=== PATIENT | male | born 1985 | race African-American/Black ===

== ENCOUNTER 2025-04-28 18:09 | Emergency (ER) | payer OTHER, SELFPAY ==
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
[2025-04-28 18:20] VITALS: BP 143/84; PULSE 120; RESP 20; TEMP 36.4; O2SAT 100
--- NOTE | 2025-04-28 18:26 | ECG_ITS ---
Test Date: 2025-04-28 18:30:03 Measurements Intervals [place] Rate: 123 P: 29 ND: 123 QRS: -2 QRSD: 89 T: 46 QT: 294 QTc: 421 Interpretive Statements SINUS TACHYCARDIA ABNORMAL RHYTHM ECG No previous ECG available for comparison Electronically Signed On 04-29-2025 10:06:27 CDT by Ervin Shelley M.D.
--- OUTSIDE RECORDS SUMMARY | 2025-04-28 22:49 | XMS_ITS ---
Author Name Department of Vetera Affairs (MD) Organization [facility] of Veter[facility] Affairs ([place]) Address [address] [place] [address] Care Team Providers Care Data Administrator Name Role Phone PEARL RICKETTS Primary Care Provider UnavailIGNACIO Cornelius Primary Care Provider Unavailtony ferreira Selected Encounter This section includes the information on record at MD for the Encounter. Date/Time Encounter Type Encounter Description Reason Provider Source Sep 10, 2024 11:39 AM TARGETED CASE MANAGEMENT ADMIN PAT ACTIVTIES (MASNONCT) CAILIN MEDINA Encounter Template Text not used by MD Plan of Treatment: Future Appointments (+ 6 months) and Future Tests (+/- 45 days) The Plan of Treatment section includes future care activities for the patient from all MD treatmentfacilities. This section includes future appointments and future orders which are active, pending or scheduled. Future Appointments This section includes appointments that were scheduled to occur 6 months from the date of the Encounter, up to a maximum of 20 appointments. The data comes from all MD treatment facilities. Appointment Date/Time Appointment Type Appointme nt Facility Name Sep 18, 2024 08:00 AM AMBULATORY - NONE BERTRAM QUEENIEBrianna DIXON [facility] Sep 24, 2024 09:00 AM AMBULATORY - MEDICINE [facility] Sep 24, 2024 11:00 AM AMBULATORY - MEDICINE [facility] Oct 21, 2024 02:00 PM AMBULATORY - MEDICINE [facility] Oct 21, 2024 03:00 PM AMBULATORY - MEDICINE [facility] Jan 24, 2025 02:00 PM AMBULATORY - MEDICINE [facility] February 14, 2025 09:30 AM AMBULATORY - MEDICINE [facility] Active, Pending, and Scheduled Orders This section includes a listing of several types of active, pending, and scheduled orders, including clinic medications orders, diagnostic test orders, procedure orders and consult orders; where the start date of the order is 45 days before the date of the Encounter or 45 days after the date of theEncounter. The data comes from all MD treatment facilities. Test Date/Time Test Type Test Details Facility Name Sep 09, 2024 12:00 AM Laboratory - Chemi stry Order HEMOGLOBIN A1C LAVENDER TOP BLOOD [facility] Sep 09, 2024 12:00 AM Laboratory - Chemi stry Order CMP-NONFASTING (CO) GREEN TOP TUBE PLASMA [facility] Sep 09, 2024 12:00 AM Laboratory - Chemi stry Order LIPID PROFILE(HDL,TRIG,CHOL ,LDL) GREEN TOP TUBE PLASMA ROSY [facility] Sep 09, 2024 12:00 AM Laboratory - Chemi stry Order CBC PROFILE 5 ML LAVENDER TOP BLOOD [facility] Sep 24, 2024 12:00 AM Laboratory - Chemi stry Order MICRAL/CREAT PROFILE (STL) URINE YELLOW [facility] Lab Results: +/- 30 days of the encounter This section includes the Chemistry and Hematology Lab Results on record with MD for the patient. Radiology Reports and Pathology Reports are provided separately, in subsequent sections. Lab Results This section contains the Chemistry/Hematology Results that were resulted 30 days before or 30 daysafter the date of the Encounter. Date/Time Source Result Type Result - Unit Interpretation Reference Range Specimen Type Comment Sep 24, 2024 10:10 AM [facility] C-PEPTIDE SERUM Specimen Type: SERUM Comment: Test Performed by [employer], [employer] [facility], [address] [place] [address] Shaji Adler M.D., Ph.D., Director of Laboratories , NARCISO [id number] Ordering Provider: PEARL RICKETTS Report Released Date/Time: Sep 24, 2024 10:05 AM Reporting Lab: [facility] [address] [facility] [address] Performing Lab: [facility] [address] [facility] C-PEPTIDE 3.70 ng/mL 0.80-3.85 Sep 24, 2024 10:10 AM [facility] HUE Ab SERUM Specimen Type: SERUM Comment: REFERENCE RANGE: <5 IU/mL This test was performed using the GAD65 YUMIKO method, which is standardized against the International reference preparation 97/550. Test Performed by [employer] [facility], [employer] [facility], [address] [place] [address] Shaji Adler M.D., Ph.D., Director of Laboratories , [place] [id number] Ordering Provider: PEARL RICKETTS Report Released Date/Time: Sep 24, 2024 10:05 AM Reporting Lab: [facility] [address] [facility] [address] Performing Lab: [facility] [id number] [place] [address] HUE Ab <5 [IU]/mL SEE BELOW Sep 24, 2024 10:10 AM [facility] HGA1C BLOOD Specimen Type: BLOOD No comment entered. Ordering Provider: PEARL RICKETTS Report Released Date/Time: Sep 20, 2024 09:48 AM Reporting Lab: [facility] [address] [facility] [address] Performing Lab: [address] [address] HGA1C 8.7 H 4.0-6.0 Sep 24, 2024 10:10 AM [facility] B12 SERUM Specimen Type: SERUM No comment entered. Ordering Provider: PEARL RICKETTS Report Released Date/Time: Sep 24, 2024 10:05 AM Reporting Lab: [facility] [address] [facility] [address] Performing Lab: [address] [address] B12 401 pg/mL 213-816 Sep 24, 2024 10:10 AM [facility] FOLATE (STL-MA) SERUM Specimen Type: SERUM No comment entered. Ordering Provider: PEARL RICKETTS Report Released Date/Time: Sep 24, 2024 10:05 AM Reporting Lab: [facility] [address] [facility] [address] Performing Lab: [facility] [address] [facility] [address] FOLATE (STL-MA) 10.1 ng/mL 7-20 Sep 24, 2024 10:10 AM [facility] COMPREHENSIVE METABOLIC PANEL PLASMA Specimen Type: PLASMA Comment: No hemolysis noted. Ordering Provider: PEARL RICKETTS Report Released Date/Time: Sep 20, 2024 09:48 AM Reporting Lab: [facility] [address] [facility] [address] Performing Lab: [address] [address] CREATININE 0.71 mg/dL 0.7-1.3 UREA NITROGEN 13.2 mg/dL 9.0-25.0 GLUCOSE 254 mg/dL H 72-99 SODIUM 140 meq/L 136-145 POTASSIUM 4.3 meq/L 3.5-5 CHLORIDE 105 meq/L 98-107 CARBON DIOXIDE 22 meq/L 22-31 CALCIUM 9.7 mg/dL 8.4-10.4 PROTEIN 8.2 g/dL 6-8.6 ALBUMIN 4.7 g/dL 3.4-5 TOTAL BILIRUBIN 0.8 mg/dL 0.2-1.2 ALKALINE PHOSPHATASE 121 U/L 40-150 AST/SGOT 26 U/L 5-34 ALT/SGPT 18 U/L 8-40 EGFR (CKD-EPI 2020) 119.7 >60 Sep 24, 2024 10:10 AM [facility] CBC BLOOD Specimen Type: BLOOD No comment entered. Ordering Provider: PEARL RICKETTS Report Released Date/Time: Sep 20, 2024 09:48 AM Reporting Lab: [facility] [address] [place] [address] Performing Lab: [address] [address] WBC 8.4 10*3/uL 3.6-11.2 RBC 5.92 10*6/uL H 4.10-5.70 HGB 17.8 g/dL H 13.1-16.8 HCT 50.3 H 38.2-48.4 MCV 85.0 fL 80.0-100.0 MCH 30.1 pg 27.0-34.0 MCHC 35.4 g/dL 33.0-36.0 PLT 222 10*3/uL 150-400 MPV 11.8 fL H 7.5-11.2 RDW 12.0 11.8-15.1 LYMPHOCYTES, AUTO % 30 MONOCYTES, AUTO % 6 NEUTROPHILS, AUTO % 61 EOSINOPHILS, AUTO % 2 BASOPHILS, AUTO % 1 LYMPHOCYTES, ABSOLUTE 2.53 10*3/uL 0.77- 4.50 MONOCYTES, ABSOLUTE 0.53 10*3/uL 0.19-0. 80 NEUTROPHILS, ABSOLUTE 5.08 10*3/uL 2.10- 8.00 EOSINOPHILS, ABSOLUTE 0.15 10*3/uL 0.00- 0.60 BASOPHILS, ABSOLUTE 0.07 10*3/uL 0.00-0. 20 Sep 24, 2024 10:10 AM [facility] TSH (MA-PB) SERUM Specimen Type: SERUM Comment: No hemolysis noted. Ordering Provider: PEARL RICKETTS Report Released Date/Time: Sep 20, 2024 09:48 AM Reporting Lab: [facility] [address] [facility] [address] Performing Lab: [facility] [address] [facility] [address] TSH 1.665 u[IU]/mL 0.47-5 Sep 24, 2024 10:10 AM [facility] LIPID PANEL (STL) PLASMA Specimen Type: PLASM A Comment: No hemolysis noted. Ordering Provider: PEARL RICKETTS Report Released Date/Time: Sep 20, 2024 09:48 AM Reporting Lab: [facility] [address] [facility] [address] Performing Lab: [facility] [address] [facility] [address] CHOLESTEROL 209 mg/dL H 0-200 TRIGLYCERIDE 124 mg/dL 0-150 CALCULATED LDL 129 mg/dL HDL(New) 55 mg/dL >40 Sep 24, 2024 10:10 AM [facility] VITAMIN D, 25-HYDROXY SERUM Specimen Type: SE RUM No comment entered. Ordering Provider: PEARL RICKETTS Report Released Date/Time: Sep 20, 2024 09:48 AM Reporting Lab: [facility] [address] [facility] [address] Performing Lab: [facility] [address] [facility] [address] VITAMIN D, 25-HYDROXY 23.6 ng/mL L 30-96 Sep 24, 2024 09:04 AM [facility] GLUCOSE,BLOOD-poct (STL) BLOOD Specimen Type: BLOOD Comment: Test Performed by: [id number] Meter #: [id number] Ordering Provider: ALEXANDREA SCHUSTER Report Released Date/Time: Sep 24, 2024 02:58 PM Reporting Lab: [facility] [address] [facility] [address] Performing Lab: [facility] [address] [facility] [address] GLUCOSE,BLOOD-poct (STL) 227 mg/dL H 72-99 Encounter Notes: All associated encounter notes This section contains the clinical notes associated to the Encounter. Date/Time Encounter Note(s) Provider Source Sep 10, 2024 11:39 AM PRIMARY CARE NOTE: LOCAL TITLE: [facility] TRAVELING PCMM NOTE ST STANDARD TITLE: PRIMARY CARE NOTE DATE OF NOTE: SEP 10, 2024@11:39 ENTRY DATE: SEP 10, 2024@11:39:40 AUTHOR: CAILIN MEDINA EXP COSIGNER: URGENCY: STATUS: COMPLETED Traveling/Relocating [place] Care Coordination Patient-Centered Management Module (PCMM) New patient PCMM received and approved for permanent relocation of care to: [facility] Per chart review will establish care with a PCP on:09/24/24 [facility] Please note the alternate MD is responsible for care until care is established at the receiving [facility]. /giselle/ CAILIN MEDINA REGISTERED NURSE, HOME TELEHEALTH COORDINATOR Signed: 09/10/2024 11:40 CAILIN MEDINA [facility]
--- OUTSIDE RECORDS SUMMARY | 2025-04-28 22:49 | XMS_ITS | Encounter Summary ---
Author Name [facility] [place] Organization [facility] [place] Address [address] [place] [address] Care Team Providers Care Health Care Coach Name Role Phone PEARL RICKETTS Primary Care Provider Unavailabl e IGNACIO GARCIA Primary Care Provider Unavailabl jhon Selected Encounter This section includes the information on record at [place] for the Encounter. Date/Time Encounter Type Encounter Description Reason Provider Source Sep 24, 2024 11:00 AM PSYTX W PT 30 MINUTES [facility] INDIV ICD-10-CM F43.20 Adjustment disorder, unspecified ALEXANDREA SCHUSTER Jhon Encounter Template Text not used by [place] Assessments - Encounter Diagnoses This section includes the primary and secondary diagnoses documented for the Encounter. Date/Time Primary/Secondary Diagnosis Diagnosis Name Provider Source Sep 24, 2024 10:08 AM PRIMARY Adjustment disorder, unspecified ALEXANDREA SCHUSTER [facility] Plan of Treatment: Future Appointments (+ 6 months) and Future Tests (+/- 45 days) The Plan of Treatment section includes future care activities for the patient from all [place] treatmentfacilities. This section includes future appointments and future orders which are active, pending or scheduled. Future Appointments This section includes appointments that were scheduled to occur 6 months from the date of the Encounter, up to a maximum of 20 appointments. The data comes from all [place] treatment facilities. Appointment Date/Time Appointment Type Appointme nt Facility Name Oct 21, 2024 02:00 PM AMBULATORY - MEDICINE [facility] Oct 21, 2024 03:00 PM AMBULATORY - MEDICINE [facility] Jan 24, 2025 02:00 PM AMBULATORY - MEDICINE [facility] February 14, 2025 09:30 AM AMBULATORY - MEDICINE [facility] Active, Pending, and Scheduled Orders This section includes a listing of several types of active, pending, and scheduled orders, including clinic medications orders, diagnostic test orders, procedure orders and consult orders; where the start date of the order is 45 days before the date of the Encounter or 45 days after the date of theEncounter. The data comes from all [place] treatment facilities. Test Date/Time Test Type Test Details Facility Name Sep 09, 2024 12:00 AM Laboratory - Chemi stry Order HEMOGLOBIN A1C LAVENDER TOP BLOOD [facility] Sep 09, 2024 12:00 AM Laboratory - Chemi stry Order CBC PROFILE 5 ML LAVENDER TOP BLOOD [facility] Sep 09, 2024 12:00 AM Laboratory - Chemi stry Order CMP-NONFASTING (CO) GREEN TOP TUBE PLASMA [facility] Sep 09, 2024 12:00 AM Laboratory - Chemi stry Order LIPID PROFILE(HDL,TRIG,CHOL ,LDL) GREEN TOP TUBE PLASMA ROSY [facility] Sep 24, 2024 12:00 AM Laboratory - Chemi stry Order MICRAL/CREAT PROFILE (STL) URINE YELLOW [facility] Lab Results: +/- 30 days of the encounter This section includes the Chemistry and Hematology Lab Results on record with [place] for the patient. Radiology Reports and Pathology Reports are provided separately, in subsequent sections. Lab Results This section contains the Chemistry/Hematology Results that were resulted 30 days before or 30 daysafter the date of the Encounter. Date/Time Source Result Type Result - Unit Interpretation Reference Range Specimen Type Comment Sep 24, 2024 10:10 AM [facility] C-PEPTIDE SERUM Specimen Type: SERUM Comment: Test Performed by Meryl Georges, [employer] [facility], [address] [place] [address] Shaji Adler M.D., Ph.D., Director of Laboratories , [place] [id number] Ordering Provider: PEARL RICKETTS Report Released Date/Time: Sep 24, 2024 10:05 AM Reporting Lab: [facility] [address] [facility] [address] Performing Lab: [facility] [address] [facility] C-PEPTIDE 3.70 ng/mL 0.80-3.85 Sep 24, 2024 10:10 AM [facility] HUE Ab SERUM Specimen Type: SERUM Comment: REFERENCE RANGE: <5 IU/mL This test was performed using the GAD65 YUMIKO method, which is standardized against the International reference preparation 97/550. Test Performed by [facility], [employer] [facility], [address] [place] [address] Shaji Adler M.D., Ph.D., Director of Laboratories , [place] [id number] Ordering Provider: PEARL RICKETTS Report Released Date/Time: Sep 24, 2024 10:05 AM Reporting Lab: [facility] [address] [place] [address] Performing Lab: [facility] [id number] [place] [address] HUE Ab <5 [IU]/mL SEE BELOW Sep 24, 2024 10:10 AM [facility] HGA1C BLOOD Specimen Type: BLOOD No comment entered. Ordering Provider: PEARL RICKETTS Report Released Date/Time: Sep 20, 2024 09:48 AM Reporting Lab: [facility] [address] [facility] [address] Performing Lab: [address] [address] HGA1C 8.7 H 4.0-6.0 Sep 24, 2024 10:10 AM [facility] B12 SERUM Specimen Type: SERUM No comment entered. Ordering Provider: PEARL RICKETTS Report Released Date/Time: Sep 24, 2024 10:05 AM Reporting Lab: [facility] [address] [place] [address] Performing Lab: [facility] [address] [place] [address] B12 401 pg/mL 213-816 Sep 24, 2024 10:10 AM [facility] FOLATE (STL-MA) SERUM Specimen Type: SERUM No comment entered. Ordering Provider: PEARL RICKETTS Report Released Date/Time: Sep 24, 2024 10:05 AM Reporting Lab: [facility] [address] [facility] [address] Performing Lab: [facility] [address] [facility] [address] FOLATE (STL-MA) 10.1 ng/mL 7-20 Sep 24, 2024 10:10 AM [facility] COMPREHENSIVE METABOLIC PANEL PLASMA Specimen Type: PLASMA Comment: No hemolysis noted. Ordering Provider: PEARL RICKETTS Report Released Date/Time: Sep 20, 2024 09:48 AM Reporting Lab: [facility] [address] [facility] [address] Performing Lab: [place] [address] [facility] [address] CREATININE 0.71 mg/dL 0.7-1.3 UREA NITROGEN 13.2 [...] 119.7 >60 Sep 24, 2024 10:10 AM [facility] CBC BLOOD Specimen Type: BLOOD No comment entered. Ordering Provider: PEARL RICKETTS Report Released Date/Time: Sep 20, 2024 09:48 AM Reporting Lab: [facility] [address] [facility] [address] Performing Lab: [address] [address] WBC 8.4 10*3/uL 3.6-11.2 RBC 5.92 10*6/uL [...] 0.00-0. 20 Sep 24, 2024 10:10 AM [facility] TSH (MA-PB) SERUM Specimen Type: SERUM Comment: No hemolysis noted. Ordering Provider: PEARL RICKETTS Report Released Date/Time: Sep 20, 2024 09:48 AM Reporting Lab: [facility] [address] [facility] [address] Performing Lab: [facility] [address] [facility] [address] TSH 1.665 u[IU]/mL 0.47-5 Sep 24, 2024 10:10 AM [facility] LIPID PANEL (STL) PLASMA Specimen Type: PLASM A Comment: No hemolysis noted. Ordering Provider: PEARL RICKETTS Report Released Date/Time: Sep 20, 2024 09:48 AM Reporting Lab: [facility] [address] [facility] [address] Performing Lab: [facility] [address] [place] [address] CHOLESTEROL 209 mg/dL H 0-200 TRIGLYCERIDE 124 mg/dL 0-150 CALCULATED LDL 129 mg/dL HDL(New) 55 mg/dL >40 Sep 24, 2024 10:10 AM [facility] VITAMIN D, 25-HYDROXY SERUM Specimen Type: SE RUM No comment entered. Ordering Provider: PEARL RICKETTS Report Released Date/Time: Sep 20, 2024 09:48 AM Reporting Lab: [facility] [address] [facility] [address] Performing Lab: [facility] [address] [facility] [address] VITAMIN D, 25-HYDROXY 23.6 ng/mL L 30-96 Sep 24, 2024 09:04 AM [facility] GLUCOSE,BLOOD-poct (STL) BLOOD Specimen Type: BLOOD Comment: Test Performed by: [id number] Meter #: [id number] Ordering Provider: ALEXANDREA SCHUSTER Report Released Date/Time: Sep 24, 2024 02:58 PM Reporting Lab: [facility] [address] [facility] [address] Performing Lab: [place] [address] [facility] [address] GLUCOSE,BLOOD-poct (STL) 227 mg/dL H 72-99 Vital Signs: All taken on the encounter date This section contains inpatient and outpatient Vital Signs collected on the date of the Encounter. Date/Time Temperature Pulse Blood Pressure Respiratory Rate SP02 Pain Height Weight Body Mass Index Source Sep 24, 2024 08:54 AM 98.2 88 130/84 16 98 0 70 214.8 31 [facility] Social History: Smoking Status (Most current) and Tobacco Use (All prior to encounter date) This section includes the most current, and the historical, smoking and tobacco- related health factors from the [place] facility where the Encounter took place. Current Smoking Status This section includes the most current smoking, or tobacco-related health factor, from the [place] facility where the Encounter took place. Date/Time Current Smoking Status Comment Facil ity Sep 24, 2024 09:00 AM VA-TOBACCO USE FOR COSME CIGARETTES [facility] Tobacco Use History This section includes a history of the smoking, or tobacco-related health factors, that were collected on or before the date of the Encounter. The data comes from the [place] facility where the Encounter took place. Date/Time Smoking Status/Tobacco Use Comment F acility Sep 24, 2024 09:00 AM VA-TOBACCO USE FOR COSME CIGARETTES [facility] Encounter Notes: All associated encounter notes This section contains the clinical notes associated to the Encounter. Date/Time Encounter Note(s) Provider Source Sep 24, 2024 09:51 AM MENTAL HEALTH NOTE : LOCAL TITLE: MH TRIAGE STL STANDARD TITLE: MENTAL HEALTH NOTE DATE OF NOTE: SEP 24, 2024@09:51 ENTRY DATE: SEP 24, 2024@09:51:46 AUTHOR: ALEXANDREA SCHUSTER COSIGNER: URGENCY: STATUS: COMPLETED NAME: AURORA PEREYRA DATE OF : Apr TIME SPENT WITH PATIENT: 16 minutes DIAGNOSTIC IMPRESSION (THIS VISIT): adjustment disorder NOS CPT Code: [address] VIA: [id number] If Others were present for this appointment, it is listed here: REASON FOR VISIT: Brief behavioral health screening to determine urgency of mental health care needs, address urgent/emergent issues, and identify a follow up care plan. PRESENTING PROBLEM: [facility], depression [place] reported he has been diagnosed with PTSD. 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 Vet feels depressed and anxious. He used to deal with anger but that has improved. Vet has worked with therapists and been prescribed antidepressant medications. Not currently taking meds. NO SI/HI or hx of attempts. is 50% SC, 50% for Adjustment disorder. INTERVENTIONS: Rapport building Goal setting Provision of psychoeducational resources and contacts was provided with empathetic listening and given the opportunity to express thoughts and feelings regarding current concerns Other: TREATMENT GOALS FOR THIS SESSION: a. To identify the appropriate setting for subsequent evaluation and treatment, and to initiate a plan of care. b. To provide emergency contact information for mental health services. c. To instill hope in the recovery process. d. Other: RISK MANAGEMENT: Assessment for SI/HI: The denies SI/HI, intent or plan at this time. The is not judged to be at imminent risk for self/other harm at this time. The [place] remains suitable for the current level of care. As a matter of attorney general, was informed of crisis hotline and given contact information. PLAN FOR CARE, INCLUDING FOLLOW-UP RECOMMENDATIONS: RTC for [facility] Initial Intake on: 10/21/24 PROGRESS TOWARDS GOAL: agrees with initial plan for care FOLLOW-UP CONTACT INFORMATION WAS PROVIDED FOR: Veterans Crisis Line Number for 08/05 assistance: , press 1 for Veterans Mental Health Point of Contact (e.g. [facility], assigned MH team) /giselle/ Alexandrea Schuster PsyD Clinical Psychologist Signed: 09/24/2024 10:09 ALEXANDREA SCHUSTER [facility]
--- OUTSIDE RECORDS SUMMARY | 2025-04-28 22:50 | XMS_ITS | Data Portability ---
Author Organization [place] [facility], Main Office Address [address] [place] [address] Assessment Encounter Date Assessment Date Assessment LastModified by Organization Details LastModified Time 10/29/2024 10/29/2024 S/p debridement of L thigh abscess. Granulating tissue at wound bed. Continue olifl-oh-djl dressings daily. Will f/u in one week. Not available 10/29/2024 14:17:38 11/07/2024 11/07/2024 status post excisional debridement left thigh abscess. Wound healing appropriately. Continue dressing changes daily. Follow up here p.r.n. Not available 11/07/2024 12:05:07 Plan of Treatment Reminders Order Date Submit Date Provider Last Modified By Organization Details Last Modified Time Details Appointments None record ed. Lab None record ed. Referral None record ed. Procedures None record ed. Surgeries None record ed. Imaging None record ed. Medication Orders None record ed. Patient TargetsNo targets recorded. Patient InstructionsNo instructions recorded. Reason for Referral None Reported. Results Created Date Observation Date Name Description Value Unit Range Abnormal Flag Note LastModifiedBy Organization Detail LastModifiedTime 10/28/1910/19/2024 CT, abdom en + pelvi s, w/ contr ast No observ ation record ed. BARCODE Not Available 2024 14:07:27 Result Notes None recorded. Medical Equipment None Reported. Allergies No known drug allergies Medications Name Sig Start Date Stop Date Status Note LastModified by Organization Details LastModified Time amoxicillin 875 mg-potassium clavulanate 125 mg tablet TAKE 1 TABLET BY MOUTH TWICE DAILY 11/07 completed Not Available Not Available Not Available Vitals Date Recorded Body height Body mass index (BMI) Body weight Body temperature Heart rate Respiratory rate Systolic And Diastolic Provider Name and Address Organization Details Last Updated DateTime 177.8 cm 30.8 kg/m2 41059.3 6 g 98 [degF] 94 /min 16 /min 130/80 mm[Hg] Raiza [place] [employer] [facility] Jackrabbit [facility] 10:42:05 Date Recorded Body height Body mass index (BMI) Body weight Heart rate Systolic And Diastolic Provider Name and Address Organization Details Last Updated DateTime 11/07/2024 177.8 cm 30.8 kg/m2 97356.36 g 92 /min 128/78 mm[Hg] NICOLE Segura [facility] [employer] [facility] 11/07/2024 11:27:51 Social History None recorded. Functional Status None recorded. Mental Status None recorded. Family History Relationship Description Onset Age of this Age Resolved Age Notes LastModified by Organization Details LastModified Time Maternal Grandfather Diabetes mellitus [email or web address] Not available 10/16 10:42:52 Maternal Grandmother Diabetes mellitus Diabet ic [email or web address] Not available 10/29/2024 10:43:11 Medical History Condition Response DIABETES, TYPE Y Past Encounters Encounter ID Performer Location Encounter Start Date Encounter Closed Date Diagnosis/Indication Diagnosis SNOMED-CT Code Diagnosis ICD10 Code Diagnosis Note [id number] Vick bernard MD [facility] General Surgery [address] [address] 10/29/2024 10:28:15 11/13/2024 16:11:03 [id number] Vick bernard MD [facility] General Surgery [address] [address] 11/07/2024 11:25:35 11/07/2024 12:20:15 Health Concerns Section Related Observation LastModified by Organization Detai ls LastModified Time None Recorded Concern Status LastModified by Organization Details LastModified Time None Recorded Advance Directives Directive None Recorded Payers Insurance Date Sequence Insurance Name Policy Number Policy Crouch Covered Member ID Crouch Member ID Guarantor Name 12/24/2024 [employer] - [place] [facility] Demetrio Sanchez [id number] Demetrio Sanchez Notes Date Note Type Note Provider Name and Address Organization Details Recorded Time 10/29/2024 text/html Patient presents for f/u after hospitalization last week for inner thigh abscess. Debridement in the OR last week and mother has been packing with wet-to-dry gauze daily. No fevers. Some drainage on gauze. Vick Acuna MD [address], [place] [address], [place], [address], [employer] 10/29/2024 14:17:41 11/07/2024 text/html No complaints Vick Acuna MD [address], [place] [address], [place], [address], [employer] 11/07/2024 12:05:10
--- OUTSIDE RECORDS SUMMARY | 2025-04-28 22:50 | XMS_ITS | Clinical Summary ---
Author Organization [facility] Administrative Offices Address [address] [place] [address] Care Team Providers Care New Grad Rn Name Role Phone Unavailable Primary Care Provider Unavailabl e Allergies No known active allergies Medications metFORMIN (GLUCOPHAGE) 1,000 mg tablet Take 1,000 mg by mouth 2 times daily with meals. Active atorvastatin (LIPITOR) 40 mg tablet Take 20 mg by mouth. 03/31/2024 Active cholecalciferol, vitamin D3, 1,000 unit Take 25 mcg by mouth. 03/31/2024 Active lidocaine-dimeth icone 5-5 % Kit, Patch, Medicated, Cream Apply to skin as directed. 03/25/2024 Active Active Problems No known active problems Social History Tobacco Use Types Packs/Day Years Used Date Smoking Tobacco: Never Smokeless Tobacco: Never Tobacco Cessation:Counseling Given: Not Answered Alcohol Use Standard Drinks/Week Comments Never 0 (1 standard drink = 0.6 oz pur e alcohol) Sex and Gender Information Value Date Recorded Sex Assigned at Not on file Legal Sex Male 10:26 AM CDT Gender Identity Not on file Sexual Orientation Not on file Last Filed Vital Signs Vital Sign Reading Time Taken Comments Blood Pressure 110/82 05/20/2024 12:59 PM CDT Pulse 110 05/20/2024 12:59 PM CDT Temperature 36.3 C (97.4 F) 05/20/2024 12:59 PM CDT Respiratory Rate 17 05/20/2024 12:59 PM CDT Oxygen Saturation 98% 05/20/2024 12:59 PM CDT Inhaled Oxygen Concentration - - Weight 90.3 kg (199 lb) 05/20/2024 12:59 PM CDT Height 177.8 cm (5' 10) 05/20/2024 12:59 PM CDT Body Mass Index 28.55 05/20/2024 12:59 PM CDT Plan of Treatment Health Maintenance Due Date Last Done Comments DIABETES ANNUAL FOOT EXAM 2003 DIABETES ANNUAL RETINAL EXAM 2003 DIABETES MICROALBUMIN ANNUAL SCREEN 2003 HEPATITIS B VACCINES (3 of 4 - Hep B Twinrix 4-dose series) 08/13/2007 07/30/2007, 07/27/2007, 11/02/2006, Additional history exists DIABETES HBA1C Q 6 MONTHS 11/22/2024 05/22/2024 INFLUENZA VACCINE (#1) 2025 07/13/2009, 2005 LDL CHOLESTEROL ANNUAL 05/22/2025 05/22/2024 DTAP/TDAP/TD VACCINES (3 - Td or Tdap) 12/19/2027 12/18/2017, 12/16/2014 HPV VACCINES Aged Out No longer eligi ble based on patient's age to complete this topic Procedures Procedure Name Priority Date/Time Associated Diagnosis Comments LIPID PANEL Routine 05/22/2024 HEMOGLOBIN A1C Routine 05/22/2024 from Last 3 Months or Most Recently Relevant to Health Maintenance Results * HEMOGLOBIN A1C (05/22/2024) ABSTRACTED HGB A1C 8.4 % Blood 05/22/2024 us Abstract Provider CHEMISTRY ORDERABLES Final Res ult * LIPID PANEL (05/22/2024) ABSTRACTED CHOLESTEROL 180 ABSTRACTED TRIGLYCERIDE 158 ABSTRACTED HDL 43 ABSTRACTED LDL CALCULATED 105 Blood 05/22/2024 us Abstract Provider CHEMISTRY ORDERABLES Final Res ult from Last 3 Months or Most Recently Relevant to Health Maintenance
--- OUTSIDE RECORDS SUMMARY | 2025-04-28 22:50 | XMS_ITS | Encounter Summary ---
Author Name [facility] Address [address] [place] [address] Care Team Providers Care Sql Database Administrator Name Role Phone PEARL RICKETTS Primary Care Provider UnavailIGNACIO Cornelius Primary Care Provider Fabio ferreira Selected Encounter This section includes the information on record at [place] for the Encounter. Date/Time Encounter Type Encounter Description Reason Pro vider Source IHE Encounter Template Text not used by [place]
--- OUTSIDE RECORDS SUMMARY | 2025-04-28 22:50 | XMS_ITS | Encounter Summary ---
Author Name [facility] [facility] [place] Address [address] [place] [address] Care Team Providers Care Golf Caddy Name Role Phone PEARL RICKETTS Primary Care Provider UnavailIGNACIO Cornelius Primary Care Provider Fabio ferreira Selected Encounter This section includes the information on record at [place] for the Encounter. Date/Time Encounter Type Encounter Description Reason Provider Source Sep 16, 2024 12:56 PM TARGETED CASE MANAGEMENT ADMIN PAT ACTIVTIES (MASNONCT) KATIE LUU Encounter Template Text not used by [place] Plan of Treatment: Future Appointments (+ 6 months) and Future Tests (+/- 45 days) The Plan of Treatment section includes future care activities for the patient from all [place] treatmentfacilities. This section includes future appointments and future orders which are active, pending or scheduled. Future Appointments This section includes appointments that were scheduled to occur 6 months from the date of the Encounter, up to a maximum of 20 appointments. The data comes from all [place] treatment facilities. Appointment Date/Time Appointment Type Appointme nt Facility Name Sep 18, 2024 08:00 AM AMBULATORY - NONE BERTRAM QUEENIEBrianna DIXON [facility] Sep 24, 2024 09:00 AM AMBULATORY - MEDICINE [facility] Sep 24, 2024 11:00 AM AMBULATORY - MEDICINE [facility] Oct 21, 2024 02:00 PM AMBULATORY - MEDICINE [facility] Oct 21, 2024 03:00 PM AMBULATORY - MEDICINE [facility] Jan 24, 2025 02:00 PM AMBULATORY - MEDICINE [facility] February 14, 2025 09:30 AM AMBULATORY - MEDICINE [facility] Active, Pending, and Scheduled Orders This section includes a listing of several types of active, pending, and scheduled orders, including clinic medications orders, diagnostic test orders, procedure orders and consult orders; where the start date of the order is 45 days before the date of the Encounter or 45 days after the date of theEncounter. The data comes from all [place] treatment facilities. Test Date/Time Test Type Test Details Facility Name Sep 09, 2024 12:00 AM Laboratory - Chemi stry Order HEMOGLOBIN A1C LAVENDER TOP BLOOD [facility] Sep 09, 2024 12:00 AM Laboratory - Chemi stry Order CMP-NONFASTING (CO) GREEN TOP TUBE PLASMA [facility] Sep 09, 2024 12:00 AM Laboratory - Chemi stry Order CBC PROFILE 5 ML LAVENDER TOP BLOOD [facility] Sep 09, 2024 12:00 AM Laboratory - Chemi stry Order LIPID PROFILE(HDL,TRIG,CHOL ,LDL) GREEN TOP TUBE PLASMA ROSY [facility] Sep 24, 2024 12:00 AM Laboratory - Chemi stry Order MICRAL/CREAT PROFILE (STL) URINE YELLOW [facility] Lab Results: +/- 30 days of the encounter This section includes the Chemistry and Hematology Lab Results on record with [place] for the patient. Radiology Reports and Pathology Reports are provided separately, in subsequent sections. Lab Results This section contains the Chemistry/Hematology Results that were resulted 30 days before or 30 daysafter the date of the Encounter. Date/Time Source Result Type Result - Unit Interpretation Reference Range Specimen Type Comment Sep 24, 2024 10:10 AM [facility] C-PEPTIDE SERUM Specimen Type: SERUM Comment: Test Performed by [employer], [employer] [facility], [address] [place] [address] Shaji Adler M.D., Ph.D., Director of Laboratories , [facility] [id number] Ordering Provider: PAERL RICKETTS Report Released Date/Time: Sep 24, 2024 10:05 AM Reporting Lab: [facility] [address] [facility] [address] Performing Lab: [facility] [address] [facility] C-PEPTIDE 3.70 ng/mL 0.80-3.85 Sep 24, 2024 10:10 AM [facility] HUE Ab SERUM Specimen Type: SERUM Comment: REFERENCE RANGE: <5 IU/mL This test was performed using the GAD65 YUMIKO method, which is standardized against the International reference preparation 97/550. Test Performed by [facility], [employer] [facility], [address] [place] [address] Shaji Adler M.D., Ph.D., Director of Laboratories , [place] [id number] Ordering Provider: PEARL RICKETTS Report Released Date/Time: Sep 24, 2024 10:05 AM Reporting Lab: [facility] [address] [facility] [address] Performing Lab: [address] HUE Ab <5 [IU]/mL SEE BELOW Sep 24, 2024 10:10 AM [facility] HGA1C BLOOD Specimen Type: BLOOD No comment entered. Ordering Provider: PEARL RICKETTS Report Released Date/Time: Sep 20, 2024 09:48 AM Reporting Lab: [facility] [address] [facility] [address] Performing Lab: [facility] [address] [place] [id number] HGA1C 8.7 H 4.0-6.0 Sep 24, 2024 10:10 AM [facility] B12 SERUM Specimen Type: SERUM No comment entered. Ordering Provider: PEARL RICKETTS Report Released Date/Time: Sep 24, 2024 10:05 AM Reporting Lab: [facility] [address] [facility] [address] Performing Lab: [facility] [address] [place] [phone] B12 401 pg/mL [phone] Sep 24, 2024 10:10 AM [facility] FOLATE (STL-MA) SERUM Specimen Type: SERUM No comment entered. Ordering Provider: PEARL RICKETTS Report Released Date/Time: Sep 24, 2024 10:05 AM Reporting Lab: [facility] [address] [facility] [address] Performing Lab: [facility] [address] [place] [phone] FOLATE (STL-MA) 10.1 ng/mL 7-20 Sep 24, 2024 10:10 AM [facility] COMPREHENSIVE METABOLIC PANEL PLASMA Specimen Type: PLASMA Comment: No hemolysis noted. Ordering Provider: PEARL RICKETTS Report Released Date/Time: Sep 20, 2024 09:48 AM Reporting Lab: [facility] [address] [facility] [address] Performing Lab: [address] [address] CREATININE 0.71 mg/dL 0.7-1.3 UREA NITROGEN 13.2 [...] 119.7 >60 Sep 24, 2024 10:10 AM [facility] CBC BLOOD Specimen Type: BLOOD No comment entered. Ordering Provider: PEARL RICKETTS Report Released Date/Time: Sep 20, 2024 09:48 AM Reporting Lab: [facility] [address] [place] [address] Performing Lab: [address] [address] WBC 8.4 10*3/uL 3.6-11.2 RBC 5.92 10*6/uL [...] 0.00-0. 20 Sep 24, 2024 10:10 AM [facility] TSH (MA-PB) SERUM Specimen Type: SERUM Comment: No hemolysis noted. Ordering Provider: PEARL RICKETTS Report Released Date/Time: Sep 20, 2024 09:48 AM Reporting Lab: [facility] [address] [facility] [address] Performing Lab: [facility] [address] [facility] [address] TSH 1.665 u[IU]/mL 0.47-5 Sep 24, 2024 10:10 AM [facility] LIPID PANEL (STL) PLASMA Specimen Type: PLASM A Comment: No hemolysis noted. Ordering Provider: PEARL RICKETTS Report Released Date/Time: Sep 20, 2024 09:48 AM Reporting Lab: [facility] [address] [facility] [address] Performing Lab: [facility] [address] [facility] [address] CHOLESTEROL 209 mg/dL H 0-200 TRIGLYCERIDE 124 mg/dL 0-150 CALCULATED LDL 129 mg/dL HDL(New) 55 mg/dL >40 Sep 24, 2024 10:10 AM [facility] VITAMIN D, 25-HYDROXY SERUM Specimen Type: SE RUM No comment entered. Ordering Provider: PEARL RICKETTS Report Released Date/Time: Sep 20, 2024 09:48 AM Reporting Lab: [facility] [address] [facility] [address] Performing Lab: [facility] [address] [facility] [address] VITAMIN D, 25-HYDROXY 23.6 ng/mL L 30-96 Sep 24, 2024 09:04 AM [facility] GLUCOSE,BLOOD-poct (STL) BLOOD Specimen Type: BLOOD Comment: Test Performed by: [id number] Meter #: [id number] Ordering Provider: ALEXANDREA SCHUSTER Report Released Date/Time: Sep 24, 2024 02:58 PM Reporting Lab: [facility] [address] [facility] [address] Performing Lab: [facility] [address] [facility] [address] GLUCOSE,BLOOD-poct (STL) 227 mg/dL H 72-99 Social History: Smoking Status (Most current) and Tobacco Use (All prior to encounter date) This section includes the most current, and the historical, smoking and tobacco- related health factors from the [place] facility where the Encounter took place. Current Smoking Status This section includes the most current smoking, or tobacco-related health factor, from the [place] facility where the Encounter took place. Date/Time Current Smoking Status Comment Facil ity Jun 24, 2022 03:30 PM [place]-TOBACCO QUIT 5 TO < 15 YRS [facility] Tobacco Use History This section includes a history of the smoking, or tobacco-related health factors, that were collected on or before the date of the Encounter. The data comes from the [place] facility where the Encounter took place. Date/Time Smoking Status/Tobacco Use Comment F acility Jun 24, 2022 03:30 PM [place]-TOBACCO QUIT 5 TO < 15 YRS [facility] Encounter Notes: All associated encounter notes This section contains the clinical notes associated to the Encounter. Date/Time Encounter Note(s) Provider Source Sep 16, 2024 12:56 PM PACT NOTE: LOCAL TITLE: CO-PCMM TRV COORDINATOR NOTE (T) STANDARD TITLE: PACT NOTE DATE OF NOTE: SEP 16, 2024@12:56 ENTRY DATE: SEP 16, 2024@12:56:06 AUTHOR: NICHOLAS LUU COSIGNER: URGENCY: STATUS: COMPLETED TRANSFER APPROVED, NEW PATIENT APPOINTMENT 09/24/24 [facility] /giselle/ NICHOLAS LUU COORDINATOR Signed: 09/16/2024 12:56 NICHOLAS LUU [facility]
--- OUTSIDE RECORDS SUMMARY | 2025-04-28 22:50 | XMS_ITS | Continuity of Care Document ---
Author Name [facility] Organization [facility] Care Team Providers Care Intelligence Analyst Name Role Phone [facility] Unavailable Unavailable Problems Combined list of problems from Department of Defense and Veterans Affairs facilities. It does not include entries that were removed or entered in error. Problem Status Onset Date Problem Type Date of Resolution Comments Source Chronic post-traumatic stress disorder Active Condition [facility] Depression ([facility] 49909553) [facility] Diabetes Mellitus Type 2 ([facility] 07180132) Active Condition [facility] Exposure to potentially hazardous substance ([facility] [id number]) Active Condition Sep 25 4 Entered By: LEYDA MAHAN Comment: Entered automatically through SEEMA Problem List documentation program [facility] Headache ([facility] 73362083) Active Condition [facility] HTN - Hypertension ([facility] 49738795) Active Condition [facility] Hyperlipidemia ([facility] 98405780) Active Condition [facility] Long-term current use of cannabis Active Condition [facility] Shoulder Pain ([facility] 15453423) Active Condition [facility] 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 Vitamin D Deficiency ([facility]CT 0315724) Active Condition [facility] Irritability and anger Inactive Condition 03/25/2024 [facility] ASTIGMATISM - REGULAR Active Condition DoD CANNABIS DEPENDENCE Active Condition DoD CANNABIS-RELATED DISORDERS Active Condition [facility] Serology Prostate-specific Antigen (PSA) Elevated Inactive Condition DoD sleep disturbances Active Condition DoD NICOTINE DEPENDENCE - CONTINUOUS Active Condition [facility] Patient Education - Self-Examination Of Testes Active Condition DoD Observation For Suspected Condition Active Condition DoD ASSESSMENT OF PATIENT CONDITION WORK-RELATED Active Condition DoD 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 DoD NICOTINE DEPENDENCE Active Condition DoD OBESITY Active Condition DoD JOINT INSTABILITY ANKLE / FOOT Active Condition DoD ANKLE SPRAIN Inactive Condition DoD Patient Education - Dietary Active Condition DoD PHASE OF LIFE OR LIFE CIRCUMSTANCE PROBLEM Active Condition DoD NO PSYCHIATRIC DIAGNOSIS OR CONDITION ON AXIS I Active Condition DoD BEREAVEMENT WITHOUT COMPLICATIONS Active Condition DoD REFRACTIVE ERROR - MYOPIA Active Condition DoD Need For Vaccination Typhoid Active Condition DoD Vaccines Prophylactic Need Against Bacterial Diseases Active Condition DoD Need For Vaccination Hepatitis A Active Condition DoD visit for: screening exam pulmonary tuberculosis Active Condition DoD PERSONAL HISTORY PRESENTING HAZARDS TO HEALTH Inactive Condition [place] DoD Patient Counseling Medical Management Individual Patient Active Condition DoD Dietary Counseling Pertaining To Specific Condition Active Condition DoD tobacco use Active Condition DoD OVERWEIGHT Active Condition DoD PREHYPERTENSION Active Condition DoD Vaccines Prophylactic Need Against Smallpox Active Condition DoD visit for: services physical Active Condition 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 DoD ASSESSMENT OF PATIENT CONDITION WORK STATUS Active Condition DoD Need For Vaccination Hepatitis B Active Condition DoD visit for: occupational health / fitness exam Active Condition DoD Patient Counseling: Active Condition DoD visit for: examination of subpopulation Active Condition DoD ASTIGMATISM Active Condition DoD Patient Education - Injury Prevention Active Condition [facility] ASSESS PATIENT CONDITION WORK-RELATED OCCUPATIONAL DISEASE Active Condition [facility] visit for: ears / hearing exam Active Condition [facility] Diagnosis: ICD-10-CM Z71.89 Other specified counseling Active Diagnosis [facility] Diagnosis: ICD-10-CM F43.20 Adjustment disorder, unspecified Active Diagnosis [facility] Diagnosis: ICD-10-CM E11.9 Type 2 diabetes mellitus without complications Active Diagnosis [facility] Medications Combined list of outpatient medications from Department of Defense and Veterans Affairs facilities.Medications provided include 1) outpatient medications from the last 15 months, and 2) patient-reported medications. Medication Details Route Status Patient Instructions Prescription Expires Prescription Number Last Dispense Date Ordering Provider Order Date Order Qty Source ATORVASTATI N CA 40MG TAB TAKE ONE-HALF TABLET BY MOUTH AT BEDTIME FOR CHOLESTE ROL. ORAL 04/01/2025 [id number] SABRINA GARCIA 2023 45 BERTRAM TG [facility] CHOLECALCIF ALICIA 25MCG (1,000UNIT) TAB TAKE ONE TABLET BY MOUTH ONCE A DAY FOR VITAMIN D DEFICIEN CY ORAL 04/01/2025 [id number] 4 SABRINA GARCIA 2023 100 BERTRAM TG [facility] EZIOOC EMPAGLIFLOZ IN 25MG TAB TAKE ONE-HALF TABLET BY MOUTH ONCE A DAY FOR DIABETES ORAL ACTIVE 06/06/2025 [id number] 4 SABRINA GARCIA 2023 45 BERTRAM TG [facility] GLIPIZIDE 10MG TAB TAKE ONE TABLET BY MOUTH TWO TIMES A DAY FOR DIABETES . TAKE 30 MINUTES BEFORE EATING. ORAL 04/01/2025 [id number] 4 SABRINA GARCIA 2023 180 BERTRAM LANG LIDOCAINE 5% PATCH APPLY 1 PATCH TO SKIN ONCE A DAY FOR NERVE PAIN APPLY PATCH FOR 12 HOURS, THEN REMOVE PATCH FOR 12 HOURS TRANSD ERMAL 03/26/2025 [id number] 4 SABRINA GARCIA 2023 30 BERTRAM LANG METFORMIN HCL 500MG 24HR TAB,SA TAKE TWO TABLETS BY MOUTH TWO TIMES A DAY FOR DIABETES -TAKE WITH FOOD. AVOID ALCOHOL. DISCONTI NUE BEFORE GETTING XRAY DYE. ORAL ACTIVE 06/06/2025 [id number] 4 SABRINA GARCIA 2023 120 BERTRAM [facility] CBCARINE METFORMIN HCL 500MG 24HR TAB,SA TAKE TWO TABLETS BY MOUTH TWICE A DAY TAKE WITH FOOD. AVOID ALCOHOL. DISCONTI NUE BEFORE GETTING XRAY DYE. ORAL HOLD 09/25/2025 [id number] 4 NIURKA RICKETTS [facility] 2023 120 [facility] Allergies, Adverse Reactions, Alerts Combined list of allergies from Department of Defense and Veterans Affairs facilities. It does not include entries that were removed or entered in error. Substance Category Reaction Severity Reaction type Status Date Reported Comments Source No Known Allergies Drug allergy (disorder) active 09/03/2007 Bertram Gonzalezning [place] Immunizations Combined list of available immunizations from the Department of Defense and Veterans Affairs facilities. 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 Comments Source TDAP 2017 115 complet ed [facility], VISN 15 Novel influenza-H1N 1-09, injectable 1 2009 [id number] 127 Other (OTH) complet ed Novel influenza -N5O6-21, injectabl e [facility] influenza virus vaccine, live, attenuated, for intranasal use 1 2008 [id number] Unknown (UNK) comple t ed influenza virus vaccine, live, attenuate d, for intranasa l use [facility] anthrax vaccine 5 2008 [id number] [employer] [place] ([facility]) complet ed anthrax vaccine DoD typhoid Vi capsular polysaccharid e vaccine 1 2008 [id number] Sanofi Pasteur ([facility]) complet ed typhoid Vi capsular polysacch aride vaccine DoD influenza virus vaccine, unspecified formulation 1 2007 [id number] Sanofi Pasteur ([facility]) complet ed influenza virus vaccine, unspecifi ed formulati on DoD anthrax vaccine 4 2007 [id number] Unknown (UNK) comple t ed anthrax vaccine DoD anthrax vaccine 3 2007 [id number] [employer] [place] ([facility]) complet ed anthrax vaccine DoD anthrax vaccine 2 2006 UNK 24 [facility] [place] ([facility]) complet ed anthrax vaccine DoD hepatitis A vaccine, adult dosage 3 2006 [id number] 52 SmithKline ([facility]) complet ed hepatitis A vaccine, adult dosage DoD vaccinia (smallpox) vaccine 1 2006 [id number] Lydia ([facility]) complet ed vaccinia (smallpox ) vaccine DoD typhoid Vi capsular polysaccharid e vaccine 1 2006 [id number] Sanofi Pasteur ([facility]) complet ed typhoid Vi capsular polysacch aride vaccine DoD anthrax vaccine 1 2006 UNK 24 [facility] ([facility]) complet ed anthrax vaccine DoD influenza virus vaccine, split virus (incl. purified surface antigen)-reti red CODE 1 2006 [id number] 15 Sanofi Pasteur ([facility]) complet ed influenza virus vaccine, split virus (incl. purified surface antigen)- retired CODE DoD hepatitis B vaccine, adult dosage 1 2006 SANAM ADORNO [id number] 43 [employer] ([facility]) complet ed hepatitis B vaccine, adult dosage DoD hepatitis B vaccine, adult dosage 3 2006 UNK 43 Unknown (UNK) comple t ed hepatitis B vaccine, adult dosage DoD hepatitis A and hepatitis B vaccine 2 2006 [id number] 104 [employer] ([facility]) complet ed hepatitis A and hepatitis B vaccine DoD hepatitis B vaccine, adult dosage 2 2006 [id number] 43 Unknown (UNK) complet ed hepatitis B vaccine, adult dosage DoD hepatitis A vaccine, adult dosage 2 2006 [id number] 52 Unknown (UNK) complet ed hepatitis A vaccine, adult dosage DoD varicella virus vaccine 1 2005 UNK 21 Unknown (UNK) Not Given varicella virus vaccine DoD measles, mumps and rubella virus vaccine 1 2005 [id number] Merck (MSD) complet ed measles, mumps and rubella virus vaccine DoD tetanus and diphtheria toxoids, adsorbed, preservative free, for adult use (2 Lf of tetanus toxoid and 2 Lf of diphtheria toxoid) 1 2005 [id number] Sanofi Pasteur ([facility]) complet ed tetanus and diphtheri a toxoids, adsorbed, preservat chung free, for adult use (2 Lf of tetanus toxoid and 2 Lf of diphtheri a toxoid) DoD poliovirus vaccine, inactivated 1 2005 [id number] Sanofi Pasteur ([facility]) complet ed polioviru s vaccine, inactivat ed DoD hepatitis A and hepatitis B vaccine 1 2005 [id number] 104 [employer] (SKB) complet ed hepatitis A and hepatitis B vaccine DoD influenza virus vaccine, live, attenuated, for intranasal use 1 2005 [id number] [employer]. (MED) complet ed influenza virus vaccine, live, attenuate d, for intranasa l use DoD meningococcal polysaccharid e (groups A, C, Y and W-135) diphtheria toxoid conjugate vaccine (MCV4P) 1 2005 [id number] Sanofi Pasteur ([facility]) complet ed meningoco ccal polysacch aride (groups A, C, Y and W-135) diphtheri a toxoid conjugate vaccine (MCV4P) DoD Results Combined list of recent chemistry, hematology and other laboratory results from Department of Defense and Veterans Affairs, ranging from 15 months to all on record, depending upon the facility. Order Name Results Value Reference Range Date Interpretation Specimen Comments Source C-PEPTIDE C PEPTIDE [MASS/VOLUM E] IN SERUM OR PLASMA 3.70 ng/mL 0.80 - 3.85 09/24 Specimen Type: SERUM Comment: Test Performed by [facility], [address] [place] [address] Shaji Adler M.D., Ph.D., Director of Laboratorie s , CLIA [id number] Ordering Provider: ESTELITA RICKETTS I Report Released Date/Time: Sep 24, 2024 10:05 AM Reporting Lab: [facility] [address] [place] [phone] Performing Lab: [address] [facility] HUE Ab GLUTAMATE DECARBOXYLA SE 65 AB [UNITS/VOLU ME] IN SERUM <5[IU] /mL 09/24 Specimen Type: SERUM Comment: REFERENCE RANGE: <5 IU/mL This test was performed using the GAD65 YUMIKO method, which is standardize d against the [facility] reference preparation 97/550. Test Performed by [facility], [address] [place] [address] Shaji Adler M.D., Ph.D., Director of Laboratorie s , CLIA [id number] Ordering Provider: ESTELITA RICKETTS I Report Released Date/Time: Sep 24, 2024 10:05 AM Reporting Lab: [address] [phone] Performing Lab: [address] [facility] HGA1C HEMOGLOBIN A1C/HEMOGLO BIN.TOTAL IN BLOOD 8.7 4.0 - 6.0 09/24 H Specimen Type: BLOOD No comment entered. Ordering Provider: ESTELITA RICKETTS I Report Released Date/Time: Sep 20, 2024 09:48 AM Reporting Lab: [facility] [address] [place] [phone] Performing Lab: [address] [phone] [place] [address] B12 COBALAMIN (VITAMIN B12) [MASS/VOLUM E] IN SERUM OR PLASMA 401 pg/mL 213 - 816 09/24 Specimen Type: SERUM No comment entered. Ordering Provider: ESTELITA RICKETTS I Report Released Date/Time: Sep 24, 2024 10:05 AM Reporting Lab: [facility] [address] [facility] [phone] Performing Lab: [facility] [address] [facility] [phone] [facility] FOLATE (STL-MA) FOLATE [MASS/VOLUM E] IN SERUM OR PLASMA 10.1 ng/mL 7 - 20 09/24 Specimen Type: SERUM No comment entered. Ordering Provider: ESTELITA RICKETTS I Report Released Date/Time: Sep 24, 2024 10:05 AM Reporting Lab: [facility] [address] [place] [phone] Performing Lab: [facility] [address] [place] [phone] [facility] COMPREHEN SIVE METABOLIC PANEL CREATININE [MASS/VOLUM E] IN SERUM OR PLASMA 0.71 mg/dL 0.7 - 1.3 09/24 Specimen Type: PLASMA Comment: No hemolysis noted. Ordering Provider: ESTELITA RICKETTS I Report Released Date/Time: Sep 20, 2024 09:48 AM Reporting Lab: [facility] [address] [place] [phone] Performing Lab: [facility] [address] [facility] [phone] [facility] COMPREHEN SIVE METABOLIC PANEL UREA NITROGEN [MASS/VOLUM E] IN SERUM OR PLASMA 13.2 mg/dL 9.0 - 25.0 09/24 Specimen Type: PLASMA Comment: No hemolysis noted. Ordering Provider: ESTELITA RICKETTS I Report Released Date/Time: Sep 20, 2024 09:48 AM Reporting Lab: [facility] [address] [place] [phone] Performing Lab: [facility] [address] [facility] [address] [facility] COMPREHEN SIVE METABOLIC PANEL GLUCOSE [MASS/VOLUM E] IN SERUM OR PLASMA 254 mg/dL 72 - 99 09/24 H Specimen Type: PLASMA Comment: No hemolysis noted. Ordering Provider: ESTELITA RICKETTS I Report Released Date/Time: Sep 20, 2024 09:48 AM Reporting Lab: [facility] [address] [facility] [phone] Performing Lab: [facility] [address] [facility] [phone] [facility] COMPREHEN SIVE METABOLIC PANEL SODIUM [MOLES/VOLU ME] IN SERUM OR PLASMA 140 meq/L 136 - 145 09/24 Specimen Type: PLASMA Comment: No hemolysis noted. Ordering Provider: ESTELITA RICKETTS I Report Released Date/Time: Sep 20, 2024 09:48 AM Reporting Lab: [facility] [address] [place] [phone] Performing Lab: [facility] [address] [place] [phone] [place] [address] COMPREHEN SIVE METABOLIC PANEL POTASSIUM [MOLES/VOLU ME] IN SERUM OR PLASMA 4.3 meq/L 3.5 - 5 09/24 Specimen Type: PLASMA Comment: No hemolysis noted. Ordering Provider: ESTELITA RICKETTS I Report Released Date/Time: Sep 20, 2024 09:48 AM Reporting Lab: [facility] [address] [place] [phone] Performing Lab: [facility] [address] [place] [phone] [facility] COMPREHEN SIVE METABOLIC PANEL CHLORIDE [MOLES/VOLU ME] IN SERUM OR PLASMA 105 meq/L 98 - 107 09/24 Specimen Type: PLASMA Comment: No hemolysis noted. Ordering Provider: ESTELITA RICKETTS I Report Released Date/Time: Sep 20, 2024 09:48 AM Reporting Lab: [facility] [address] [place] [phone] Performing Lab: [facility] [address] [place] [phone] [facility] COMPREHEN SIVE METABOLIC PANEL CARBON DIOXIDE, TOTAL [MOLES/VOLU ME] IN SERUM OR PLASMA 22 meq/L 22 - 31 09/24 Specimen Type: PLASMA Comment: No hemolysis noted. Ordering Provider: ESTELITA RICKETTS I Report Released Date/Time: Sep 20, 2024 09:48 AM Reporting Lab: [facility] [address] [facility] [phone] Performing Lab: [facility] [address] [facility] [phone] [facility] COMPREHEN SIVE METABOLIC PANEL CALCIUM [MASS/VOLUM E] IN SERUM OR PLASMA 9.7 mg/dL 8.4 - 10.4 09/24 Specimen Type: PLASMA Comment: No hemolysis noted. Ordering Provider: ESTELITA RICKETTS I Report Released Date/Time: Sep 20, 2024 09:48 AM Reporting Lab: [facility] [address] [place] [phone] Performing Lab: [facility] [address] [place] [phone] [place] [address] COMPREHEN SIVE METABOLIC PANEL PROTEIN [MASS/VOLUM E] IN SERUM OR PLASMA 8.2 g/dL 6 - 8.6 09/24 Specimen Type: PLASMA Comment: No hemolysis noted. Ordering Provider: ESTELITA RICKETTS I Report Released Date/Time: Sep 20, 2024 09:48 AM Reporting Lab: [facility] [address] [facility] [phone] Performing Lab: [facility] [address] [place] [phone] [facility] COMPREHEN SIVE METABOLIC PANEL ALBUMIN [MASS/VOLUM E] IN SERUM OR PLASMA 4.7 g/dL 3.4 - 5 09/24 Specimen Type: PLASMA Comment: No hemolysis noted. Ordering Provider: ESTELITA RICKETTS I Report Released Date/Time: Sep 20, 2024 09:48 AM Reporting Lab: [facility] [address] [place] [phone] Performing Lab: [facility] [address] [place] [phone] [facility] COMPREHEN SIVE METABOLIC PANEL BILIRUBIN.T OTAL [MASS/VOLUM E] IN SERUM OR PLASMA 0.8 mg/dL 0.2 - 1.2 09/24 Specimen Type: PLASMA Comment: No hemolysis noted. Ordering Provider: ESTELITA RICKETTS I Report Released Date/Time: Sep 20, 2024 09:48 AM Reporting Lab: [facility] [address] [facility] [phone] Performing Lab: [facility] [address] [place] [phone] [facility] COMPREHEN SIVE METABOLIC PANEL ALKALINE PHOSPHATASE [ENZYMATIC ACTIVITY/VO LUME] IN SERUM OR PLASMA 121 U/L 40 - 150 09/24 Specimen Type: PLASMA Comment: No hemolysis noted. Ordering Provider: ESTELITA RICKETTS I Report Released Date/Time: Sep 20, 2024 09:48 AM Reporting Lab: [address] [phone] Performing Lab: [address] [phone] [facility] COMPREHEN SIVE METABOLIC PANEL ASPARTATE AMINOTRANSF ERASE [ENZYMATIC ACTIVITY/VO LUME] IN SERUM OR PLASMA 26 U/L 5 - 34 09/24 Specimen Type: PLASMA Comment: No hemolysis noted. Ordering Provider: ESTELITA RICKETTS I Report Released Date/Time: Sep 20, 2024 09:48 AM Reporting Lab: [facility] [address] [place] [phone] Performing Lab: [facility] [address] [place] [phone] [facility] COMPREHEN SIVE METABOLIC PANEL ALANINE AMINOTRANSF ERASE [ENZYMATIC ACTIVITY/VO LUME] IN SERUM OR PLASMA 18 U/L 8 - 40 09/24 Specimen Type: PLASMA Comment: No hemolysis noted. Ordering Provider: ESTELITA RICKETTS I Report Released Date/Time: Sep 20, 2024 09:48 AM Reporting Lab: [facility] [address] [place] [phone] Performing Lab: [facility] [address] [place] [phone] [facility] COMPREHEN SIVE METABOLIC PANEL GLOMERULAR FILTRATION RATE/1.73 SQ M.PREDICTED [VOLUME RATE/AREA] IN SERUM, PLASMA OR BLOOD BY CREATININE- BASED FORMULA (CKD-EPI 2020) 119.7 60 09/24 Specimen Type: PLASMA Comment: No hemolysis noted. Ordering Provider: ESTELITA RICKETTS I Report Released Date/Time: Sep 20, 2024 09:48 AM Reporting Lab: [facility] [address] [place] [phone] Performing Lab: [address] [phone] [place] [address] CBC LEUKOCYTES [#/VOLUME] IN BLOOD BY AUTOMATED COUNT 8.4 10*3/u L 3.6 - 11.2 09/24 Specimen Type: BLOOD No comment entered. Ordering Provider: ESTELITA RICKETTS I Report Released Date/Time: Sep 20, 2024 09:48 AM Reporting Lab: [address] [phone] Performing Lab: [facility] [address] [place] [phone] [facility] CBC ERYTHROCYTE S [#/VOLUME] IN BLOOD BY AUTOMATED COUNT 5.92 10*6/u L 4.10 - 5.70 09/24 H Specimen Type: BLOOD No comment entered. Ordering Provider: ESTELITA RICKETTS I Report Released Date/Time: Sep 20, 2024 09:48 AM Reporting Lab: [facility] [address] [place] [phone] Performing Lab: [facility] [address] [place] [phone] [facility] CBC HEMOGLOBIN [MASS/VOLUM E] IN BLOOD 17.8 g/dL 13.1 - 16.8 09/24 H Specimen Type: BLOOD No comment entered. Ordering Provider: ESTELITA RICKETTS I Report Released Date/Time: Sep 20, 2024 09:48 AM Reporting Lab: [address] [phone] Performing Lab: [facility] [address] [address] [facility] CBC HEMATOCRIT [VOLUME FRACTION] OF BLOOD 50.3 38.2 - 48.4 09/24 H Specimen Type: BLOOD No comment entered. Ordering Provider: ESTELITA RICKETTS I Report Released Date/Time: Sep 20, 2024 09:48 AM Reporting Lab: [address] [phone] Performing Lab: [address] [phone] [facility] CBC MCV [ENTITIC VOLUME] BY AUTOMATED COUNT 85.0 fL 80.0 - 100.0 09/24 Specimen Type: BLOOD No comment entered. Ordering Provider: ESTELITA RICKETTS I Report Released Date/Time: Sep 20, 2024 09:48 AM Reporting Lab: [address] [phone] Performing Lab: [address] [address] [facility] CBC MCH [ENTITIC MASS] BY AUTOMATED COUNT 30.1 pg 27.0 - 34.0 09/24 Specimen Type: BLOOD No comment entered. Ordering Provider: ESTELITA RICKETTS I Report Released Date/Time: Sep 20, 2024 09:48 AM Reporting Lab: [address] [phone] Performing Lab: [address] [phone] [facility] CBC MCHC [MASS/VOLUM E] BY AUTOMATED COUNT 35.4 g/dL 33.0 - 36.0 09/24 Specimen Type: BLOOD No comment entered. Ordering Provider: ESTELITA RICKETTS I Report Released Date/Time: Sep 20, 2024 09:48 AM Reporting Lab: [address] [phone] Performing Lab: [address] [phone] [facility] CBC PLATELETS [#/VOLUME] IN BLOOD BY AUTOMATED COUNT 222 10*3/u L 150 - 400 09/24 Specimen Type: BLOOD No comment entered. Ordering Provider: ESTELITA RICKETTS I Report Released Date/Time: Sep 20, 2024 09:48 AM Reporting Lab: [facility] [address] [place] [phone] Performing Lab: [address] [phone] [place] [address] CBC PLATELET MEAN VOLUME [ENTITIC VOLUME] IN BLOOD BY AUTOMATED COUNT 11.8 fL 7.5 - 11.2 09/24 H Specimen Type: BLOOD No comment entered. Ordering Provider: ESTELITA RICKETTS I Report Released Date/Time: Sep 20, 2024 09:48 AM Reporting Lab: [address] [address] Performing Lab: [address] [phone] [place] [address] CBC ERYTHROCYTE DISTRIBUTIO N WIDTH [RATIO] BY AUTOMATED COUNT 12.0 11.8 - 15.1 09/24 Specimen Type: BLOOD No comment entered. Ordering Provider: ESTELITA RICKETTS I Report Released Date/Time: Sep 20, 2024 09:48 AM Reporting Lab: [facility] [address] [place] [phone] Performing Lab: [address] [phone] [facility] CBC LYMPHOCYTES /100 LEUKOCYTES IN BLOOD BY AUTOMATED COUNT 30 09/24 Specimen Type: BLOOD No comment entered. Ordering Provider: ESTELITA RICKETTS I Report Released Date/Time: Sep 20, 2024 09:48 AM Reporting Lab: [facility] [address] [place] [phone] Performing Lab: [facility] [address] [place] [phone] [facility] CBC MONOCYTES/1 00 LEUKOCYTES IN BLOOD BY AUTOMATED COUNT 6 09/24 Specimen Type: BLOOD No comment entered. Ordering Provider: ESTELITA RICKETTS I Report Released Date/Time: Sep 20, 2024 09:48 AM Reporting Lab: [facility] [address] [facility] [phone] Performing Lab: [facility] [address] [place] [phone] [facility] CBC NEUTROPHILS /100 LEUKOCYTES IN BLOOD BY AUTOMATED COUNT 61 09/24 Specimen Type: BLOOD No comment entered. Ordering Provider: ESTELITA RICKETTS I Report Released Date/Time: Sep 20, 2024 09:48 AM Reporting Lab: [facility] [address] [place] [phone] Performing Lab: [facility] [address] [place] [phone] [place] [address] CBC EOSINOPHILS /100 LEUKOCYTES IN BLOOD BY AUTOMATED COUNT 2 09/24 Specimen Type: BLOOD No comment entered. Ordering Provider: ESTELITA RICKETTS I Report Released Date/Time: Sep 20, 2024 09:48 AM Reporting Lab: [facility] [address] [place] [phone] Performing Lab: [phone] [place] [address] CBC BASOPHILS/1 00 LEUKOCYTES IN BLOOD BY AUTOMATED COUNT 1 09/24 Specimen Type: BLOOD No comment entered. Ordering Provider: ESTELITA RICKETTS I Report Released Date/Time: Sep 20, 2024 09:48 AM Reporting Lab: [facility] [address] [place] [phone] Performing Lab: [facility] [address] [place] [phone] [facility] CBC LYMPHOCYTES [#/VOLUME] IN BLOOD BY AUTOMATED COUNT 2.53 10*3/u L 0.77 - 4.50 09/24 Specimen Type: BLOOD No comment entered. Ordering Provider: ESTELITA RICKETTS I Report Released Date/Time: Sep 20, 2024 09:48 AM Reporting Lab: [facility] [address] [place] [phone] Performing Lab: [facility] [address] [facility] [phone] [facility] CBC MONOCYTES [#/VOLUME] IN BLOOD BY AUTOMATED COUNT 0.53 10*3/u L 0.19 - 0.80 09/24 Specimen Type: BLOOD No comment entered. Ordering Provider: ESTELITA RICKETTS I Report Released Date/Time: Sep 20, 2024 09:48 AM Reporting Lab: [facility] [address] [place] [phone] Performing Lab: [facility] [address] [place] [phone] [facility] CBC NEUTROPHILS [#/VOLUME] IN BLOOD BY AUTOMATED COUNT 5.08 10*3/u L 2.10 - 8.00 09/24 Specimen Type: BLOOD No comment entered. Ordering Provider: ESTELITA RICKETTS I Report Released Date/Time: Sep 20, 2024 09:48 AM Reporting Lab: [facility] [address] [place] [phone] Performing Lab: [facility] [address] [place] [phone] [facility] CBC EOSINOPHILS [#/VOLUME] IN BLOOD BY AUTOMATED COUNT 0.15 10*3/u L 0.00 - 0.60 09/24 Specimen Type: BLOOD No comment entered. Ordering Provider: ESTELITA RICKETTS I Report Released Date/Time: Sep 20, 2024 09:48 AM Reporting Lab: [facility] [address] [place] [phone] Performing Lab: [facility] [address] [place] [phone] [facility] CBC BASOPHILS [#/VOLUME] IN BLOOD BY AUTOMATED COUNT 0.07 10*3/u L 0.00 - 0.20 09/24 Specimen Type: BLOOD No comment entered. Ordering Provider: ESTELITA RICKETTS I Report Released Date/Time: Sep 20, 2024 09:48 AM Reporting Lab: [facility] [address] [place] [phone] Performing Lab: [facility] [address] [facility] [phone] [facility] TSH (MA-PB) THYROTROPIN [UNITS/VOLU ME] IN SERUM OR PLASMA 1.665 u[IU]/ mL 0.47 - 5 09/24 Specimen Type: SERUM Comment: No hemolysis noted. Ordering Provider: ESTELITA RICKETTS I Report Released Date/Time: Sep 20, 2024 09:48 AM Reporting Lab: [facility] [address] [facility] [phone] Performing Lab: [address] [phone] [facility] LIPID PANEL (STL) CHOLESTEROL [MASS/VOLUM E] IN SERUM OR PLASMA 209 mg/dL 0 - 200 09/24 H Specimen Type: PLASMA Comment: No hemolysis noted. Ordering Provider: ESTELITA RICKETTS I Report Released Date/Time: Sep 20, 2024 09:48 AM Reporting Lab: [facility] [address] [facility] [phone] Performing Lab: [facility] [address] [place] [phone] [facility] LIPID PANEL (STL) TRIGLYCERID E [MASS/VOLUM E] IN SERUM OR PLASMA 124 mg/dL 0 - 150 09/24 Specimen Type: PLASMA Comment: No hemolysis noted. Ordering Provider: ESTELITA RICKETTS I Report Released Date/Time: Sep 20, 2024 09:48 AM Reporting Lab: [facility] [address] [facility] [phone] Performing Lab: [facility] [address] [place] [phone] [facility] LIPID PANEL (STL) CHOLESTEROL IN LDL [MASS/VOLUM E] IN SERUM OR PLASMA BY CALCULATION 129 mg/dL 09/24 Specimen Type: PLASMA Comment: No hemolysis noted. Ordering Provider: ESTELITA RICKETTS I Report Released Date/Time: Sep 20, 2024 09:48 AM Reporting Lab: [facility] [address] [facility] [phone] Performing Lab: [address] [phone] [facility] LIPID PANEL (STL) CHOLESTEROL IN HDL [MASS/VOLUM E] IN SERUM OR PLASMA 55 mg/dL 40 09/24 Specimen Type: PLASMA Comment: No hemolysis noted. Ordering Provider: ESTELITA RICKETTS I Report Released Date/Time: Sep 20, 2024 09:48 AM Reporting Lab: [facility] [address] [facility] [phone] Performing Lab: [address] [address] [facility] VITAMIN D, 25-HYDROX Y 25-HYDROXYV ITAMIN D3 [MASS/VOLUM E] IN SERUM OR PLASMA 23.6 ng/mL 30 - 96 09/24 L Specimen Type: SERUM No comment entered. Ordering Provider: ESTELITA RICKETTS I Report Released Date/Time: Sep 20, 2024 09:48 AM Reporting Lab: [facility] [address] [facility] [phone] Performing Lab: [address] [phone] [facility] Vital Signs Combined list of inpatient and outpatient Vital Signs from Department of Defense and Veterans Affairs, ranging from 12 months to all on record, depending upon the facility. Vital Sign Value Date Comments Source SYSTOLIC BLOOD PRESSURE 130 09/24/20 24 08:54:24 [facility] DIASTOLIC BLOOD PRESSURE 84 024 08:54:24 [facility] PULSE OXIMETRY 98 09/24/2024 08:54:24 [facility] WEIGHT 214.8 09/24/2024 08:54:24 [facility] BMI 31 kg/m2 09/24/2024 08:54:24 [facility] PAIN 0 09/24/2024 08:54:24 [facility] HEIGHT 70 09/24/2024 08:54:24 [facility] TEMPERATURE 98.2 09/24/2024 08:54:24 [facility] PULSE 88 09/24/2024 08:54:24 [facility] RESPIRATION 16 09/24/2024 08:54:24 [facility] Encounters Combined list of: 1) Encounters from Department of Veterans Affairs facilities going backup to the last 18 months, not all VA inpatient encounters are included; 2) Encounters from the Department of Defense facilities going backup to 280 months. Location Location Details Encounter Type Encounter Number Reason For Visit Attending Provider ADM Date DC Date Status Disposition Source [facility] [place]) OUTPATIENT [id number] JANETH CLEMONS 08/31 [facility]itations [facility]) [facility] [id number] MIKE MIMS 09/01 [facility]ased w/o Limitations [facility] [place]) [facility] [place] OUTPATIENT [id number] AD INPROCE SSING 94TH PREHNNATHANIEL E 07/27 Released w/o Limitations [facility] [place] [facility] [place]) [place] [id number] SANAM Gauthier 07/27 [place]ased w/o Limitations [facility] [place] [facility] [place]IENT [id number] [facility] DD 2795 /DA 7349 PHA /SPX SCREENI GULSHAN LEON 08/21 Released w/o Limitations [facility] [place] [facility] [facility] [facility] [place] [place] [facility]) OUTPATIENT [id number] [facility], DD 2795, DA 7349, SMALLPO X SCREENI GULSHAN LEON 08/21 Released w/o Limitations [facility] [place] [place] [place] [facility] [facility] [place] OUTPATIENT [id number] Pre-dep loyment LIANA VALLADARES 08/21 Released w/o Limitations [facility] [place] [facility] SHAHRIAR Multani(Readin ess Processin g Center) OUTPATIENT [id number] Pre-Dep loyment Medical Assessm ent DELETED_HA LYNDSEY, MARVIN H 09/03 Released w/o Limitations [facility] [place](Read iness Process ing Center) [facility] [place] [place]) OUTPATIENT [id number] POST DEPLOYM ENT/DD 2796/DA 7349 GULSHAN GRAHAM 08/12 Released w/o Limitations [facility] [facility] [facility] [facility]) OUTPATIENT [id number] Post deploym ent Hearing Test TJ PETTY 08/12 Released w/o Limitations [facility] [facility] [place] OUTPATIENT [id number] TRAN LUGO 08/20 Released w/o Limitations [facility] [facility] [place] OUTPATIENT [id number] dd 2900 ANJALI iM 01/13 Released w/o Limitations [facility] CL[facility] Pablo(Sold ier Readine ss Program Center) [facility] CL[facility] Pablo(Nutrit ion) OUTPATIENT [id number] ad weight to stay class ADRIANO GONZALES 02/26 Released w/o Limitations [facility] [place]) [facility] CLARY Greene(Family Practice Team 1) OUTPATIENT [id number] er f/u ankle sprain vs fx SINDY DAVIDSON 03/19 Released w/o Limitations [facility] [place]Fami [place] Practic [place] Team 1) [facility] [place]) [place]PAT[place] [id number] ANKLE SPRAIN CODY ODEN 03/25 Released w/o Limitations [facility] [place] [facility] [place]) [place] [id number] f/u CODY ODEN 05/11 Released with Work/Duty Limitations [facility] [place] [facility] [place] [place] [facility] OUTPATIENT [id number] imr/pha /anthra x/typho id/ppd GULSHAN MCNEIL 05/25 Released with Work/Duty Limitations [facility] [place] [facility] [place] OUTPATIENT [id number] chapter LIANA VALLADARES 08/10 Released w/o Limitations [facility] [place] [facility] [place]) [place]IENT [id number] physica l TERE SAVAGE 08/10 Released w/o Limitations [facility] [place] [facility] [place]) OUTPATIENT [id number] chapter 14 (part 1/2) DONNA DANIELS 08/10 Released w/o Limitations [facility] [place] ical [place] [facility] [place] OUTPATIENT [id number] KATHI BAPTISTE 10/23 Released w/o Limitations [facility] [place] [facility] [place] [place] [facility]) OUTPATIENT [id number] MOB/DD2 795/HIV STEFANIE MCNEIL 11/09 Released w/o Limitations [place]) [place] [id number] RIDGE NEWMAN 11/09 Released [place]itations [place]) OUTPATIENT [id number] pre deploym zena ANGELO WASHINGTON. 11/09 Released [place] Limitations [place] OUT[place]IENT [id number] KATHI BAPTISTE 11/11 Released [place] Limitations [place] [facility] Outpatient Encounter [id number] 12/13 [facility] Outpatient Encounter [id number] 01/30 [facility] Outpatient Encounter [id number] 02/22 [facility] Outpatient Encounter [id number] IGNACIO GARCIA 03/22 [facility] Outpatient Encounter [id number] 03/25 [facility] OFFICE O/P EST MOD 30 MIN [id number] Diagnos is: ICD-10- CM E11.9 Type 2 diabete s mellitu s without complic ations IGNACIO GARCIA 03/25 [facility] Outpatient Encounter [id number] 06/05 [facility] Outpatient Encounter [id number] LUIS GROVE 06/05 [facility] Outpatient Encounter [id number] LUIS GROVE 06/07 [facility] TARGETED CASE MANAGEMENT [id number] CHENTE MEDINA 09/10 [facility] TARGETED CASE MANAGEMENT [id number] [facility] 09/16 [facility] Outpatient Encounter [id number] STACY RICKETTS [place] 09/20 [facility] OFF[facility] O/P NEW MOD 45 MIN [id number] Diagnos is: ICD-10- CM E11.9 Type 2 diabete s mellitu s without complic ations STACY RICKETTS [place] 09/24 [facility] PSY[facility] W PT 30 MINUTES [id number] Diagnos is: ICD-10- CM F43.20 Adjustm ent disorde r, unspeci fiCON Vinson T 09/24 [facility] WELLNESS ASSESSMENT BY [facility] [id number] Diagnos is: ICD-10- CM Z71.89 Other specifi ed certified substance abuse counselor RA LUIS ALFREDO De Jesus 09/24 [facility] Outpatient Encounter [id number] 09/25 [facility] Outpatient Encounter [id number] 09/26 [facility] En[facility] [id number] 09/26 [facility] Outpatient Encounter [id number] 10/20 [facility] Outpatient Encounter [id number] CON SCHUSTER T 10/21 [facility] Encounter [id number] STACY RICKETTS [place] 10/21 [facility] Outpatient Encounter [id number] WILLIAM HURD 10/25 [facility] Outpatient Encounter [id number] CLARY HERNANDEZ 10/25 [facility] Outpatient Encounter [id number] LILIAMNID HI 01/08 [facility] Outpatient Encounter [id number] 01/24 [facility] Encounter [id number] LILIAMNID HI 01/24 [facility] Outpatient Encounter [id number] LILIAMNID [place] 02/04 [facility] Encounter [id number] 02/14 [facility] Outpatient Encounter [id number] STACY RICKETTS [place] 02/17 [facility] Procedures Combined list of: 1) Procedures from Department of [facility] Affairs facilities going back up to thelast 18 months, not all VA non-surgical procedures are included; 2) All procedures from the Department of Defense facilities. Procedure Procedure Type Code Date Perfomer Comments Sourc e HEPATITIS A VACCINE (HEPA), ADULT DOSAGE, FOR INTRAMUSCULAR USE 09/03/20 07 [facility] SCREENING TEST OF VISUAL ACUITY, QUANTITATIVE, BILATERAL 11/11/19 10 [facility] AUDIOMETRIC TESTING OF GROUPS 11/09/19 10 [facility] NEUROPSYC TSTNG(EG,LESLIE-RE ITAN NEUROPSYC IMELDA,ALEKS MEMRY SCALES&[place] CARD SORT TST),W QUALIFIED HEALTH CARE PROFSIONAL INTERP&RPT,ADMINISTE RED INDEPENDENT LIVING SPECIALIST,/HR,TECHN ICIAN TME,FCE-2-FCE 11/09/19 10 [facility] GROUP PSYCHOTHERAPY (OTHER THAN OF A MULTIPLE-FAMILY GROUP) 11/04/19 10 [facility] INFLUENZA VIRUS VACCINE, PANDEMIC FORMULATION, H1N1 10/28/19 10 [facility] SCREENING TEST OF VISUAL ACUITY, QUANTITATIVE, BILATERAL 10/23/19 10 [facility] GROUP PSYCHOTHERAPY (OTHER THAN OF A MULTIPLE-FAMILY GROUP) 09/30/20 [facility] INDIVIDUAL PSYCHOTHERAPY, INSIGHT ORIENTED, BEHAVIOR MODIFYING AND/OR SUPPORTIVE, IN AN OFFICE OR OUTPATIENT FACILITY, APPROXIMATELY 20 TO 30 MINUTES VQJJ-TR-[id number] WITH THE PATIENT 09/25/20 [facility] GROUP PSYCHOTHERAPY (OTHER THAN OF A MULTIPLE-FAMILY GROUP) 09/23/20 [facility] INDIVIDUAL PSYCHOTHERAPY, INSIGHT ORIENTED, BEHAVIOR MODIFYING AND/OR SUPPORTIVE, IN AN OFFICE OR OUTPATIENT FACILITY, APPROXIMATELY 45 TO 50 MINUTES [id number] WITH THE PATIENT 09/09/20 [facility] GROUP PSYCHOTHERAPY (OTHER THAN OF A MULTIPLE-FAMILY GROUP) 09/09/20 [facility] PSYCHIATRIC DIAGNOSTIC INTERVIEW EXAMINATION 09/01/20 [facility] INDIVIDUAL PSYCHOTHERAPY, INSIGHT ORIENTED, BEHAVIOR MODIFYING AND/OR SUPPORTIVE, IN AN OFFICE OR OUTPATIENT FACILITY, APPROXIMATELY 20 TO 30 MINUTES [id number]-[id number] WITH THE PATIENT 08/28/20 [facility] GROUP PSYCHOTHERAPY (OTHER THAN OF A MULTIPLE-FAMILY GROUP) 08/19/20 [facility] GROUP PSYCHOTHERAPY (OTHER THAN OF A MULTIPLE-FAMILY GROUP) 08/12/20 [facility] INFLUENZA VIRUS VACCINE, TRIVALENT, LIVE (LAIV3), FOR INTRANASAL USE 08/11/20 [facility] AUDIOMETRIC TESTING OF GROUPS 08/10/20 [facility] SCREENING TEST OF VISUAL ACUITY, QUANTITATIVE, BILATERAL 08/10/20 PSYCHIATRIC DIAGNOSTIC INTERVIEW EXAMINATION 08/04/20 INDIVIDUAL PSYCHOTHERAPY, INSIGHT ORIENTED, BEHAVIOR MODIFYING AND/OR SUPPORTIVE, IN AN OFFICE OR OUTPATIENT FACILITY, APPROXIMATELY 20 TO 30 MINUTES VAOW-LE-LMAG WITH THE PATIENT 07/30/20 INDIVIDUAL PSYCHOTHERAPY, INSIGHT ORIENTED, BEHAVIOR MODIFYING AND/OR SUPPORTIVE, IN AN OFFICE OR OUTPATIENT FACILITY, APPROXIMATELY 45 TO 50 MINUTES QZHV-FS-[id number] WITH THE PATIENT 07/15/20 PSYCHIATRIC DIAGNOSTIC INTERVIEW EXAMINATION 07/01/20 INDIVIDUAL PSYCHOTHERAPY, INSIGHT ORIENTED, BEHAVIOR MODIFYING AND/OR SUPPORTIVE, IN AN OFFICE OR OUTPATIENT FACILITY, APPROXIMATELY 20 TO 30 MINUTES [id number]-MG-SHSR WITH THE PATIENT 06/26/20 [facility] ANKLE FOOT ORTHOSIS, MULTILIGAMENTOUS ANKLE SUPPORT, PREFABRICATED, [id number]-IMC-[id number] 03/25/20 [facility] INJECTION, KETOROLAC TROMETHAMINE, PER 15 MG 03/12/20 MEDICAL NUTRITION THERAPY; GROUP (2 OR MORE INDIVIDUAL(S)), EACH 30 MINUTES 02/27/20 [facility] INDIVIDUAL PSYCHOTHERAPY, INSIGHT ORIENTED, BEHAVIOR MODIFYING AND/OR SUPPORTIVE, IN AN OFFICE OR OUTPATIENT FACILITY, APPROXIMATELY 45 TO 50 MINUTES HHMN-XR-JECZ WITH THE PATIENT 02/26/20 INDIVIDUAL PSYCHOTHERAPY, INSIGHT ORIENTED, BEHAVIOR MODIFYING AND/OR SUPPORTIVE, IN AN OFFICE OR OUTPATIENT FACILITY, APPROXIMATELY 45 TO 50 MINUTES BPDG-BV-BCMA WITH THE PATIENT 11/05/19 [facility] INDIVIDUAL PSYCHOTHERAPY, INSIGHT ORIENTED, BEHAVIOR MODIFYING AND/OR SUPPORTIVE, IN AN OFFICE OR OUTPATIENT FACILITY, APPROXIMATELY 45 TO 50 MINUTES PTJW-SQ-[id number] WITH THE PATIENT 08/27/20 [facility] INDIVIDUAL PSYCHOTHERAPY, INSIGHT ORIENTED, BEHAVIOR MODIFYING AND/OR SUPPORTIVE, IN AN OFFICE OR OUTPATIENT FACILITY, APPROXIMATELY 20 TO 30 MINUTES TWZV-UN-JXHW WITH THE PATIENT 08/27/20 [facility] SCREENING TEST OF VISUAL ACUITY, QUANTITATIVE, BILATERAL 08/20/20 AUDIOMETRIC TESTING OF GROUPS 08/12/20 [facility] EAR MOLD/INSERT, NOT DISPOSABLE, ANY TYPE 08/21/20 [facility] HEPATITIS B VACCINE (HEPB), ADULT DOSAGE, 3 DOSE SCHEDULE, FOR INTRAMUSCULAR USE 07/27/20 07 [facility] BLOOD PRESSURE MEASURED (CKD)(DM) 07/27/20 07 [facility] HEPATITIS A AND HEPATITIS B VACCINE (HEPA-HEPB), ADULT DOSAGE, FOR INTRAMUSCULAR USE 11/07/19 07 [facility] MEASLES, MUMPS AND RUBELLA VIRUS VACCINE (MMR), LIVE, FOR SUBCUTANEOUS USE 09/04/20 [facility] DETERMINATION OF REFRACTIVE STATE 09/01/20 [facility] EAR MOLD/INSERT, NOT DISPOSABLE, ANY TYPE 08/31/20 [facility] Determination Of Refractive State Determination Of Refractive State [id number] 11/11/19 10 ROYCE KELLEY [facility] Spectacles Services Fitting Monofocals (Not For Aphakia) Spectacles Services Fitting Monofocals (Not For Aphakia) [id number] 11/11/19 10 ROYCE KELLEY Screening Test Of Visual Acuity, Quantitative, Bilateral Screening Test Of Visual Acuity, Quantitative, Bilateral [id number] 11/11/19 10 ROYCE KELLEY [facility] Audiometry Group Testing Audiometry Group Testing [id number] 11/09/19 10 ANGELO WASHINGTON [facility] Psychometric Neuropsych Testing Battery Admin By Physics Technical Officer Psychometric Neuropsych Testing Battery Admin By Physics Technical Officer [id number] 11/09/19 10 RIDGE RAE [facility] Psychiatric Therapy Group ([facility]) Psychiatric Therapy Group ([facility]) [id number] 11/04/19 10 CHERRY PALACIOS [facility] Screening Test Of Visual Acuity, Quantitative, Bilateral Screening Test Of Visual Acuity, Quantitative, Bilateral [id number] 10/26/19 10 ROYCE KELLEY [facility] Determination Of Refractive State Determination Of Refractive State [id number] 10/26/19 10 ROYCE KELLEY [facility] Psychiatric Therapy Group (Interview) Psychiatric Therapy Group (Interview) [id number] 10/01/20 09 CHERRY PALACIOS [facility] Psychiatric Therapy Individual Approximately 20-30 Minutes Psychiatric Therapy Individual Approximately 20-30 Minutes [id number] 09/25/20 09 CHERRY PALACIOS add 10 minuets to session [facility] Psychiatric Therapy Group (Interview) Psychiatric Therapy Group (Interview) [id number] 09/23/20 09 CHARBEL LANDEROS Psychiatric Therapy Group (Interview) Psychiatric Therapy Group (Interview) [id number] 09/09/20 09 CHARBEL LANDEROS [facility] Psychiatric Evaluation Comprehensive Examination Psychiatric Evaluation Comprehensive Examination [id number] 09/01/20 09 JOHN NEGRON [facility] Psychiatric Therapy Individual Approximately 20-30 Minutes Psychiatric Therapy Individual Approximately 20-30 Minutes [id number] 08/28/20 09 CHERRY PALACIOS [facility] Psychiatric Therapy Group (Interview) Psychiatric Therapy Group (Interview) [id number] 08/20/20 09 CHARBEL LANDEROS [facility] Psychiatric Therapy Group (Interview) Psychiatric Therapy Group (Interview) [id number] 08/12/20 09 CHERRY PALACIOS [facility] Audiometry Group Testing Audiometry Group Testing [id number] 08/10/20 09 LIANA VALLADARES [facility] Screening Test Of Visual Acuity, Quantitative, Bilateral Screening Test Of Visual Acuity, Quantitative, Bilateral [id number] 08/10/20 09 TERE SAVAGE [facility] Psychiatric Evaluation Comprehensive Examination Psychiatric Evaluation Comprehensive Examination [id number] 08/05/20 09 CHERRY PALACIOS [facility] Psychiatric Evaluation Comprehensive Examination Psychiatric Evaluation Comprehensive Examination [id number] 08/04/20 09 CHERRY PALACIOS [facility] Psychiatric Therapy Individual Approximately 20-30 Minutes Psychiatric Therapy Individual Approximately 20-30 Minutes [id number] 07/30/20 09 MARISA TORO DoD Psychiatric Therapy Individual Approximately 45-50 Minutes Psychiatric Therapy Individual Approximately 45-50 Minutes [id number] 07/17/20 09 PHILLIP GARCIA [facility] Psychiatric Evaluation Comprehensive Examination Psychiatric Evaluation Comprehensive Examination [id number] 07/03/20 09 PHILLIP GARCIA DoD Psychiatric Therapy Individual Approximately 20-30 Minutes Psychiatric Therapy Individual Approximately 20-30 Minutes [id number] 06/26/20 09 MARISA TORO [facility] Ankle foot orthosis, multiligamentous ankle support, prefabricated, [id number] 03/25/20 09 CODY ODEN [facility] Medical Nutrition Therapy Group (2 or More Individual(s)) Medical Nutrition Therapy Group (2 or More Individual(s)) [id number] 03/04/20 09 ADRIANO GONZALES [facility] Social Work Individual Outpatient Counseling 45-50 Minutes Social Work Individual Outpatient Counseling 45-50 Minutes [id number] 02/26/20 09 HARINDER MORTON Clinical Social Work [facility] Social Work Individual Outpatient Counseling 45-50 Minutes Social Work Individual Outpatient Counseling 45-50 Minutes [id number] 11/05/19 09 HARINDER MORTON DoD Social Work Individual Outpatient Counseling 20-30 Minutes Social Work Individual Outpatient Counseling 20-30 Minutes [id number] 08/30/20 08 HARINDER MORTON Social Work Individual Outpatient Counseling 45-50 Minutes Social Work Individual Outpatient Counseling 45-50 Minutes [id number] 08/30/20 08 HARINDER MORTON Screening Test Of Visual Acuity, Quantitative, Bilateral Screening Test Of Visual Acuity, Quantitative, Bilateral [id number] 08/20/20 08 TRAN ACEVEDO Determination Of Refractive State Determination Of Refractive State 21668 08/20/20 08 TRAN ACEVEDO [facility] Fitting Monofocals (Not For Aphakia) [facility] Fitting Monofocals (Not For Aphakia) 22520 08/20/20 08 TRAN ACEVEDO Audiometry Group Testing Audiometry Group Testing 06201 08/13/20 08 TJ PETTY Typhoid Vaccine Vi Capsular Polysaccharide, For Intramus Use Typhoid Vaccine Vi Capsular Polysaccharide, For Intramus Use [id number] 09/03/20 07 MARVIN WORTHY Skin Test Anergy tuberculin Skin Test Anergy tuberculin 95500 09/03/20 07 MARVIN WORTHY Hepatitis A Vaccine Adult Dosage (Intramuscular Use) Hepatitis A Vaccine Adult Dosage (Intramuscular Use) [id number] 09/03/20 07 MARVIN WORTHY Immunization Administration Each Additional Vaccine 09/03/20 07 MARVIN WORTHY Vaccines Vaccines [id number] 09/03/20 07 MARVIN WORTHY Immunization Administration One Vaccine Immunization Administration One Vaccine [id number] 09/03/20 07 MARVIN WORTHY Anthrax Vaccine, For Subcutaneous Use 09/03/20 07 MARVIN WORTHY Ear mold/insert, not disposable, any type 08/21/[address] Special Review / Reporting Of Patient Status Dr. [place] Special Review / Reporting Of Patient Status [id number] 08/21/20 07 LIANA VALLADARES [facility] Testing Audiometry Group Testing [id number] 08/21/20 07 LIANA VALLADARES Hepatitis B Vaccine (Active); 20 Years and Above 07/30/20 07 SANAM ADORNO Immunization Administration One Vaccine Immunization Administration One Vaccine 51055 07/30/20 07 SANAM ADORNO A e ment & Intervention Blood Pre ure Measured 07/27/20 07 NATHANIEL TURCIOS Screening Test Of Visual Acuity, Quantitative, Bilateral Screening Test Of Visual Acuity, Quantitative, Bilateral 43347 09/01/20 06 BRUNILDA GRECO [facility] Fitting Monofocals (Not For Aphakia) [facility] Fitting Monofocals (Not For Aphakia) 16918 09/01/20 06 BRUNILDA GRECO Determination Of Refractive State Determination Of Refractive State 36976 09/01/20 06 BRUNILDA GRECO Ear mold/insert, not disposable, any type 08/31/20 06 JANETH CLEMONS [facility] Testing Audiometry Group Testing [id number] 08/31/[address] Educational Services 08/31/20 06 JANETH CLEMONS Social History Combined list of available smoking, tobacco, and other social history from [facility] and [facility] facilities. Social History Type Response Date Comment Sour e Tobacco smoking status NHIS VA-TOBACCO USE FORMER CIGARETTES 09/24/2024 [facility] History of tobacco use VA-TOBACCO NEVER USED OTHER TYPE 09/24/2024 [facility] History of tobacco use VA-TOBACCO FORMER USER 03/25/2024 [facility] History of tobacco use VA-TOBACCO FORMER USER 06/24/2022 [facility] History of tobacco use VA-TOBACCO FORMER USER 04/21/2021 [facility] History of tobacco use VA-TOBACCO FORMER USER 12/14/2018 [facility] This section is an empty social history section. DoD
--- OUTSIDE RECORDS SUMMARY | 2025-04-28 22:50 | XMS_ITS | Encounter Summary ---
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 Date/Time Encounter Type Encounter Description Reason Provider Source Sep 24, 2024 09:00 AM OFFICE O/P NEW MOD 45 MIN PRIMARY CARE/MEDICINE ICD-10-CM E11.9 Type 2 diabetes mellitus without complications PEARL BOOGIE [place] Encounter Template Text not used by [place] Assessments - Encounter Diagnoses This section includes the primary and secondary diagnoses documented for the Encounter. Date/Time Primary/Secondary Diagnosis Diagnosis Name Provider Source Sep 24, 2024 10:05 AM PRIMARY Type 2 diabetes mellitus without complications PEARL BOOGIE [facility] Sep 24, 2024 10:05 AM SECONDARY Contact with and exposure to other hazardous substances JOHANA CASTELLANOS I [facility] Sep 24, 2024 10:05 AM SECONDARY Depression, unspecified PEARL BOOGIE [facility] Sep 24, 2024 10:05 AM SECONDARY Essential (primary) hypertension PEARL BOOGIE [facility] Sep 24, 2024 10:05 AM SECONDARY Hyperlipidemia, unspecified PEARL BOOGIE [facility] Sep 24, 2024 10:05 AM SECONDARY Pain in unspecified shoulder PEARL BOOGIE [facility] Sep 24, 2024 10:05 AM SECONDARY Vitamin D deficiency, unspecified [facility] Plan of Treatment: Future Appointments (+ 6 months) and Future Tests (+/- 45 days) The Plan of Treatment section includes future care activities for the [facility] This section includes future appointments and future orders which are active, pending or scheduled. Future Appointments This section includes appointments that were scheduled to occur 6 months from the date of the Encounter, up to a maximum of 20 appointments. The data comes from all [facility]. Appointment Date/Time Appointment Type Appointme nt Facility Name Oct 21, 2024 02:00 PM [facility] MEDICINE [facility] Oct 21, 2024 03:00 PM [facility]IC[facility] Jan 24, 2025 02:00 PM [facility] February 14, 2025 09:30 AM [facility] Active, Pending, and Scheduled Orders This section includes a listing of several types of active, pending, and scheduled orders, including clinic medications orders, diagnostic test orders, procedure orders and consult orders; where the start date of the order is 45 days before the date of the Encounter or 45 days after the date of theEncounter. The data comes from all [facility]. Test Date/Time Test Type Test Details Facility Name Sep 09, 2024 12:00 AM Laboratory - Chemi stry Order HEMOGLOBIN A1C [facility] Sep 09, 2024 12:00 AM Laboratory - Chemi stry Order CBC PROFILE 5 ML [facility] Sep 09, 2024 12:00 AM Laboratory - Chemi stry Order CMP-NONFASTING (CO) GREEN TOP TUBE PLASMA [facility] Sep 09, 2024 12:00 AM Laboratory - Chemi stry Order LIPID PROFILE(HDL,TRIG,CHOL ,LDL) GREEN TOP TUBE PLASMA [facility] Sep 24, 2024 12:00 AM Laboratory - Chemi stry Order MICRAL/CREAT PROFILE (STL) URINE YELLOW [facility] Lab Results: +/- 30 days of the encounter This section includes the Chemistry and Hematology Lab Results on record with [place] for the patient. Radiology Reports and Pathology Reports are provided separately, in subsequent sections. Lab Results This section contains the Chemistry/Hematology Results that were resulted 30 days before or 30 daysafter the date of the Encounter. Date/Time Source Result Type Result - Unit Interpretation Reference Range Specimen Type Comment Sep 24, 2024 10:10 AM [facility] C-PEPTIDE SERUM Specimen Type: SERUM Comment: Test Performed by [facility], [address] [place] [address] Shaji Adler M.D., Ph.D., Director of Laboratories , CLIA [id number] Ordering Provider: PEARL BOOGIE Report Released Date/Time: Sep 24, 2024 10:05 AM Reporting Lab: [facility] [address] [place] [phone] Performing Lab: [address] C-PEPTIDE 3.70 ng/mL 0.80-3.85 Sep 24, 2024 10:10 AM [facility] HUE Ab SERUM Specimen Type: SERUM Comment: REFERENCE RANGE: <5 IU/mL This test was performed using the GAD65 YUMIKO method, which is standardized against the International reference preparation 97/550. Test Performed by [facility], [address] [place] [address] Shaji Adler M.D., Ph.D., Director of Laboratories , CLIA [id number] Ordering Provider: PEARL BOOGIE Report Released Date/Time: Sep 24, 2024 10:05 AM Reporting Lab: [facility] [address] [place] [phone] Performing Lab: [facility] [id number] [place] [address] HUE Ab <5 [IU]/mL SEE BELOW Sep 24, 2024 10:10 AM [facility] HGA1C BLOOD Specimen Type: BLOOD No comment entered. Ordering Provider: PEARL BOOGIE Report Released Date/Time: Sep 20, 2024 09:48 AM Reporting Lab: [facility] [address] [place] [phone] Performing Lab: [facility] [address] [place] [phone] HGA1C 8.7 H 4.0-6.0 Sep 24, 2024 10:10 AM [facility] B12 SERUM Specimen Type: SERUM No comment entered. Ordering Provider: PEARL BOOGIE Report Released Date/Time: Sep 24, 2024 10:05 AM Reporting Lab: [facility] [address] [facility] [address] Performing Lab: [facility] [address] [facility] [phone] B12 401 pg/mL [phone] Sep 24, 2024 10:10 AM [facility] FOLATE (L-MA) SERUM Specimen Type: SERUM No comment entered. Ordering Provider: PEARL BOOGIE Report Released Date/Time: Sep 24, 2024 10:05 AM Reporting Lab: [facility] [address] [facility] [address] Performing Lab: [facility] [address] [place] [phone] FOLATE (L-IN) 10.1 ng/mL 7-20 Sep 24, 2024 10:10 AM [facility] COMPREHENSIVE METABOLIC PANEL PLASMA Specimen Type: PLASMA Comment: No hemolysis noted. Ordering Provider: PEARL BOOGIE Report Released Date/Time: Sep 20, 2024 09:48 AM Reporting Lab: [facility] [address] [facility] [address] Performing Lab: [facility] [address] [place] [phone] CREATININE 0.71 mg/dL 0.7-1.3 UREA NITROGEN 13.2 [...] 119.7 >60 Sep 24, 2024 10:10 AM [facility] CBC BLOOD Specimen Type: BLOOD No comment entered. Ordering Provider: PEARL BOOGIE Report Released Date/Time: Sep 20, 2024 09:48 AM Reporting Lab: [facility] [address] [facility] [phone] Performing Lab: [facility] [address] [place] [phone] WBC 8.4 10*3/uL 3.6-11.2 RBC 5.92 10*6/uL [...] 0.00-0. 20 Sep 24, 2024 10:10 AM [facility] TSH (MA-PB) SERUM Specimen Type: SERUM Comment: No hemolysis noted. Ordering Provider: PEARL BOOGIE Report Released Date/Time: Sep 20, 2024 09:48 AM Reporting Lab: [facility] [address] [facility] [address] Performing Lab: [facility] [address] [place] [phone] TSH 1.665 u[IU]/mL 0.47-5 Sep 24, 2024 10:10 AM [facility] LIPID PANEL (STL) PLASMA Specimen Type: PLASM A Comment: No hemolysis noted. Ordering Provider: PEARL BOOGIE Report Released Date/Time: Sep 20, 2024 09:48 AM Reporting Lab: [facility] [address] [facility] [phone] Performing Lab: [facility] [address] [facility] [phone] CHOLESTEROL 209 mg/dL H 0-200 TRIGLYCERIDE 124 mg/dL 0-150 CALCULATED LDL 129 mg/dL HDL(New) 55 mg/dL >40 Sep 24, 2024 10:10 AM [facility] VITAMIN D, 25-HYDROXY SERUM Specimen Type: SE RUM No comment entered. Ordering Provider: PEARL BOOGIE Report Released Date/Time: Sep 20, 2024 09:48 AM Reporting Lab: [facility] [address] [facility] [address] Performing Lab: [facility] [address] [place] [phone] VITAMIN D, 25-HYDROXY 23.6 ng/mL L 30-96 Sep 24, 2024 09:04 AM [facility] GLUCOSE,BLOOD-poct (STL) BLOOD Specimen Type: BLOOD Comment: Test Performed by: [id number] Meter #: [id number] Ordering Provider: ALEXANDREA SCHUSTER Report Released Date/Time: Sep 24, 2024 02:58 PM Reporting Lab: [place] [id number] [facility] [phone] Performing Lab: [place] [id number] [facility] [phone] GLUCOSE,BLOOD-poct (STL) 227 mg/dL H 72-99 Vital Signs: All taken on the encounter date This section contains inpatient and outpatient Vital Signs collected on the date of the Encounter. Date/Time Temperature Pulse Blood Pressure Respiratory Rate SP02 Pain Height Weight Body Mass Index Source Sep 24, 2024 08:54 AM 98.2 88 130/84 16 98 0 70 214.8 31 [facility] Social History: Smoking Status (Most current) and Tobacco Use (All prior to encounter date) This section includes the most current, and the historical, smoking and tobacco- related health factors from the [place] facility where the Encounter took place. Current Smoking Status This section includes the most current smoking, or tobacco-related health factor, from the [place] facility where the Encounter took place. Date/Time Current Smoking Status Comment Yasmani ity Sep 24, 2024 09:00 AM VA-TOBACCO USE FOR [facility] Tobacco Use History This section includes a history of the smoking, or tobacco-related health factors, that were collected on or before the date of the Encounter. The data comes from the [place] facility where the Encounter took place. Date/Time Smoking Status/Tobacco Use Comment F acility Sep 24, 2024 09:00 AM VA-TOBACCO USE FOR [facility] Encounter Notes: All associated encounter notes This section contains the clinical notes associated to the Encounter. Date/Time Encounter Note(s) Provider Source Sep 30, 2024 10:12 AM ADDENDUM: LOCAL TITLE: Addendum STANDARD TITLE: ADDENDUM DATE OF NOTE: SEP 30, 2024@10:12:15 ENTRY DATE: SEP 30, 2024@10:12:16 AUTHOR: PEARL BOOGIE EXP COSIGNER: URGENCY: STATUS: COMPLETED alerting CP to fu for uncont DM , elevated ldl /es/ PEARL BOOGIE STAFF PHYSICIAN Signed: 09/30/2024 10:12 Receipt Acknowledged By: 09/30/2024 11:38 /giselle/ Sherry Rodriguez PharmD CLINICAL SKIVER MACHINE --- Original Document --- 09/24/24 PRIMARY CARE PROVIDER NEW VISIT STL: Patient is: NEW Chief Complaint / Hx of present illness is relocating to [facility] from [facility] multiple chr med issues - dm- last a1c 9 , htn , hld , ptsd c/o rls - was on gabapentin but has dced has lost ~35 lbs 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 Special Procedures Nurse History: NA G P post menopausal/LMP: Last PAP: History of abn PAP: HRT hx: History of familial breast/car starter cancer: Hx of hysterectomy: Past Surgical History: reviewed left foot partial amputation for trauma Family History: reviewed DM in several first deg relatives aunt had breast cancer Outpatient Medications: Active Outpatient Medications (including Supplies): Allergies: Patient has answered NKA Objective: Physical Exam: VSD - Detailed Vitals Date Vital Measurement Qualifiers 09/24/2024 08:54 Temp F (C) 98.2 (36.8) Pulse 88 Respir 16 BP 130/84 Ht in (cm) 70 (177.80) Stated Wt lbs (kg)[BMI] 214.8 (97.43)[31*]Actual Pain 0 POx (L/Min)(%) 98 General: Alert and oriented. NAD.obese Head: Atraumatic. Normocephalic. Eyes: Conjunctiva clear. Nasal: Normal mucosa without discharge. Mouth/Throat: Oral mucosa is pink and moist. Neck: Supple. Cardiovascular: Regular rate and rhythm. No murmurs or extra heart sounds appreciated on auscultation. Respiratory: Breathing is nonlabored on room air. Lungs are clear to auscultation bilaterally. Abdomen: Abdomen is soft, nontender, and non-distended. Extremities: No edema. Neurologic: CN II-XII grossly intact. No focal deficits. LAST CBC/DIFF DONE WITHIN 8 WEEKS: No data available No recent lipid panel PSA PC STL No data available for: PROST. SPECIFIC AG.(PB-STL) No data available for: CREATININE UREA NITROGEN GLUCOSE SODIUM POTASSIUM CHLORIDE CARBON DIOXIDE CALCIUM PROTEIN ALBUMIN TOTAL BILIRUBIN ALKALINE PHOSPHATASE AST/SGOT ALT/SGPT EGFR (CKD-EPI 2020) No data available No data available for: COLONOSCOPY CONSULT REPORT STL SLT - Lab Tests Selected No data available for: HGA1C Assessment/ plan: New to [facility] - tx from [facility] reviewed labs from may 2024 reviewed - Typ 2 DM uncont a1c 8.4 pt has only been taking metformin er 1000mg bid was on glipizide 10 mg bid /recently was rxed gmwhmxpcfudmw31.5 mg daily - has not taken either in a while will obtain labs today and alert CP to fu pt has lost ~35 lbs in the last year or two pt is not on an DEEJAY inh/ obtain labs hld - ct atorvastatin rls refuses gabapentin will fu w labs rt shoulder pain mamadou PT / acetaminophen , euglycemia Anxiety , depression , ptsd pt will see pcmhi today rtc 3 mths vvc /es/ PEARL BOOGIE STAFF PHYSICIAN Signed: 09/24/2024 10:05 PEARL BOOGIE [facility] Sep 30, 2024 10:07 AM PHYSICIAN LETTERS: LOCAL TITLE: TEST RESULT GENERAL LETTER STL STANDARD TITLE: PHYSICIAN LETTERS DATE OF NOTE: SEP 30, 2024@10:07 ENTRY DATE: SEP 30, 2024@10:07:56 AUTHOR: PEARL BOOGIE EXP COSIGNER: URGENCY: STATUS: COMPLETED [facility] [address] [place] [address] SEP 30, 2024 DEMETRIO SANCHEZ [address] [place], [place] [address] Dear Demetrio Sanchez, I would like to update you on your recent test results. LIPID PROFILE - High cholesterol and triglycerides (lipids) are risk factors for heart disease. Your cholesterol should fall between 140 and 200, and your triglycerides levels should be less than or equal to 150. HDL is the good cholesterol and should ideally be greater than 40. LDL is the bad cholesterol and optimal levels should be less than 100 (near optimal is between 100 and 129). TRIGLYCERIDE 124 mg/dL 09/24/2024 10:10 CHOLESTEROL 209 H mg/dL 09/24/2024 10:10 HDL(New) 55 mg/dL 09/24/2024 10:10 CALCULATED LDL 129 mg/dL 09/24/2024 10:10 No DIRECT LDL EO data found These results are abnormal. i suggest starting cholesterol reducing medicine called Atorvastatin HEMOGLOBIN A1C - Gives us information about your diabetes (sugar or glucose) control over the past 3 months. Your target is to keep your A1C below 0 %. HGA1C 8.7 H % 09/24/2024 10:10 These results are abnormal. your blood sugars are very high. please be compliant with all your medicines and i will alert the clinical pharmacist to follow up with you to help control your blood sugars CBC - A complete blood count (CBC) gives important information about the kinds and numbers of cells in the blood, especially red blood cells, white blood cells, and platelets. HGB 17.8 H g/dL 09/24/2024 10:10 HEMATOCRIT 50.3 % H (09/24/24 10:10) PLT 222 10*3/uL 09/24/2024 10:10 WHITE BLOOD COUNT 8.4 10*3/uL (09/24/24 10:10) These results are abnormal. please stop tobacco use if any / i will follow up on this at your next visit B12 - Helps maintain healthy nerve cells, red blood cells, and is also needed to make DNA. B12 401 pg/mL 09/24/2024 10:10 These readings are within normal limits. CHEM 7 - This is important information about the current status of your kidneys, liver, and electrolyte and acid/base balance as well as of your blood sugar and blood proteins. SODIUM 140 mEq/L 09/24/2024 10:10 POTASSIUM 4.3 mEq/L 09/24/2024 10:10 CHLORIDE 105 mEq/L 09/24/2024 10:10 UREA NITROGEN 13.2 mg/dL 09/24/2024 10:10 CREATININE 0.71 mg/dL 09/24/2024 10:10 CALCIUM 9.7 mg/dL 09/24/2024 10:10 CARBON DIOXIDE 22 mEq/L 09/24/2024 10:10 GLUCOSE 254 H mg/dL 09/24/2024 10:10 EGFR (CKD-EPI 2020) 119.7 09/24/2024 10:10 These readings are within normal limits. LIVER FUNCTION PANEL - These are tests for liver function: PROTEIN 8.2 g/dL 09/24/2024 10:10 ALBUMIN 4.7 g/dL 09/24/2024 10:10 TOTAL BILIRUBIN 0.8 mg/dL 09/24/2024 10:10 ALKALINE PHOSPHATASE 121 U/L 09/24/2024 10:10 AST/SGOT 26 U/L 09/24/2024 10:10 ALT/SGPT 18 U/L 09/24/2024 10:10 These readings are within normal limits. TSH - Thyroid-stimulating hormone (also known as TSH or thyrotropin) is a peptide hormone synthesized and secreted by thyrotrope cells in the anterior pituitary gland, which regulates the endocrine function of the thyroid gland. TSH TSH 1.665 uIU/mL 09/24/2024 10:10 These readings are within normal limits. VITAMIN D - Helps promote the proper utilization of calcium and phosphorus, thereby producing proper bone maintenance. VITAMIN D, 25-HYDROXY 23.6 L ng/mL 09/24/2024 10:10 These results are abnormal. please take vitamin d 1000units every day FUTURE APPOINTMENTS: 10/21/2024 15:00 [facility] PCMHI MARIELY 01/24/2025 14:00 [facility] VVC PACT B3 PCP Sincerely, PEARL BOOGIE STAFF PHYSICIAN DEMETRIO SANCHEZ,PEARL [facility] Sep 24, 2024 09:34 AM PRIMARY CARE INITI AL EVALUATION NOTE: LOCAL TITLE: PRIMARY CARE PROVIDER NEW VISIT [facility] STANDARD TITLE: PRIMARY CARE INITIAL EVALUATION NOTE DATE OF NOTE: SEP 24, 2024@09:34 ENTRY DATE: SEP 24, 2024@09:34:21 AUTHOR: PEARL BOOGIE EXP COSIGNER: URGENCY: STATUS: COMPLETED PRIMARY CARE PROVIDER NEW VISIT [facility] Has ADDENDA Patient is: NEW Chief Complaint / Hx of present illness is relocating to [facility] from [facility] multiple chr med issues - dm- last a1c 9 , htn , hld , ptsd c/o rls - was on gabapentin but has dced has lost ~35 lbs 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 Special Procedures Nurse History: NA G P post menopausal/LMP: Last PAP: History of abn PAP: HRT hx: History of familial breast/car starter cancer: Hx of hysterectomy: Past Surgical History: reviewed left foot partial amputation for trauma Family History: reviewed DM in several first deg relatives aunt had breast cancer Outpatient Medications: Active Outpatient Medications (including Supplies): Allergies: Patient has answered NKA Objective: Physical Exam: VSD - Detailed Vitals Date Vital Measurement Qualifiers 09/24/2024 08:54 Temp F (C) 98.2 (36.8) Pulse 88 Respir 16 BP 130/84 Ht in (cm) 70 (177.80) Stated Wt lbs (kg)[BMI] 214.8 (97.43)[31*]Actual Pain 0 POx (L/Min)(%) 98 General: Alert and oriented. NAD.obese Head: Atraumatic. Normocephalic. Eyes: Conjunctiva clear. Nasal: Normal mucosa without discharge. Mouth/Throat: Oral mucosa is pink and moist. Neck: Supple. Cardiovascular: Regular rate and rhythm. No murmurs or extra heart sounds appreciated on auscultation. Respiratory: Breathing is nonlabored on room air. Lungs are clear to auscultation bilaterally. Abdomen: Abdomen is soft, nontender, and non-distended. Extremities: No edema. Neurologic: CN II-XII grossly intact. No focal deficits. LAST CBC/DIFF DONE WITHIN 8 WEEKS: No data available No recent lipid panel PSA PC STL No data available for: PROST. SPECIFIC AG.(PB-STL) No data available for: CREATININE UREA NITROGEN GLUCOSE SODIUM POTASSIUM CHLORIDE CARBON DIOXIDE CALCIUM PROTEIN ALBUMIN TOTAL BILIRUBIN ALKALINE PHOSPHATASE AST/SGOT ALT/SGPT EGFR (CKD-EPI 2020) No data available No data available for: COLONOSCOPY CONSULT REPORT STL SLT - Lab Tests Selected No data available for: HGA1C Assessment/ plan: New to [facility] - tx from [facility] reviewed labs from may 2024 reviewed - Typ 2 DM uncont a1c 8.4 pt has only been taking metformin er 1000mg bid was on glipizide 10 mg bid /recently was rxed osqrxkdaqrxyt39.5 mg daily - has not taken either in a while will obtain labs today and alert CP to fu pt has lost ~35 lbs in the last year or two pt is not on an DEEJAY inh/ obtain labs hld - ct atorvastatin rls refuses gabapentin will fu w labs rt shoulder pain mamadou PT / acetaminophen , euglycemia Anxiety , depression , ptsd pt will see pcmhi today rtc 3 mths vvc /giselle/ PEARL BOOGIE STAFF PHYSICIAN Signed: 09/24/2024 10:05 09/30/2024 ADDENDUM STATUS: COMPLETED alerting CP to fu for uncont DM , elevated ldl /es/ PEARL BOOGIE STAFF PHYSICIAN Signed: 09/30/2024 10:12 Receipt Acknowledged By: * AWAITING SIGNATURE * SHERRY RODRIGUEZ NIDHI [facility] Sep 24, 2024 08:58 AM NURSING NOTE: LOCAL TITLE: V15 PACT FACE TO FACE NOTE STL STANDARD TITLE: NURSING NOTE DATE OF NOTE: SEP 24, 2024@08:58 ENTRY DATE: SEP 24, 2024@08:58:38 AUTHOR: DUNCAN YA COSIGNER: URGENCY: STATUS: COMPLETED V15 PACT FACE TO FACE NOTE STL Has ADDENDA Provider Visit: Patient Identifiers : Full Name Date of Reason for visit: New Patient Do you have a history of any of the following? (check all that apply): Diabetes, Obesity, Other:hyperlipidemia,vitam in d deficiency,astimatism Surgeries (type(s) and date(s)): left foot degloving and toe amputation Have you been seen by a physician, ND or private, in the last year? Yes Name and contact information for provider: [facility] Have you been hospitalized or seen in an ER in the last year? No Have you had a colonoscopy previously? No Have you had a PAP smear previously? N/A Have you had a Mammogram previously? No Mode of Arrival: Ambulatory Allergy Review: Patient has answered NKA Allergy list reviewed and remains current. Recent Vital Signs: Temperature: 98.2 F [36.8 C] (09/24/2024 08:54) Pulse: 88 (09/24/2024 08:54) Respiration: 16 (09/24/2024 08:54) B/P: 130/84 (09/24/2024 08:54) Pain: 0 (09/24/2024 08:54) Wt: 214.8 lb [97.43 kg] (09/24/2024 08:54) Ht: 70 in [177.8 cm] (09/24/2024 08:54) BMI: 30.9 POX: 98% (09/24/2024 08:54) Blood sugar glucometer readin PERSONAL HEALTH INVENTORY Notes: No data available for PHI note titles PERSONAL HEALTH INVENTORY - MAP: No data available for PHI MAP What matters most to you in your life right now? --- 's Response: getting healthy WHOLE HEALTH SHARED GOALS: PERSONAL HEALTH PLAN - SHARED GOALS: No data available for: Php Shared Goals SHARED GOALS == continued weight loss Would you like to discuss any personal problem, family problem, alcohol use, drug use, or a mental or emotional illness? No Contact provided Primary Care phone number and encouraged to call if any questions or concerns. Review that after hours nurse line [phone] and emergency room are available 08/05 for patient use. Contact verbalized good understanding. Suicide Screen - V: C-SSRS Screening [place]-Suicide Severity Rating Scale (C-SSRS Screener) 1. Over the past month, have you wished you were or wished you could go to sleep and not wake up? No 2. Over the past month, have you had any actual thoughts of killing yourself? No 3. Over the past month, have you been thinking about how you might do this? Response not required due to responses to other questions. 4. Over the past month, have you had these thoughts and had some intention of acting on them? Response not required due to responses to other questions. 5. Over the past month, have you started to work out or worked out the details of how to kill yourself? Response not required due to responses to other questions. 6. If yes, at any time in the past month did you intend to carry out this plan? Response not required due to responses to other questions. 7. In your lifetime, have you ever done anything, started to do anything, or prepared to do anything to end your life (for example, collected pills, obtained a gun, gave away valuables, went to the roof but didn't jump)? No 8. If YES, was this within the past 3 months? Response not required due to responses to other questions. Depression Screening - V: Perform PHQ-2 A PHQ-2 screen was performed. The score was 2 which is a negative screen for depression. Over the past two weeks, how often have you been bothered by the following problems? 1. Little interest or pleasure in doing things Several days 2. Feeling down, depressed, or hopeless Several days Licensed Independent Provider notified of positive screen and need for follow-up. Name of provider notified: Dr Schuster and Dr Boogie Homelessness/Food Insecurity Screen - DI,L,N,P,PH,PS,S,U: In the past 2 months, have you been living in stable housing that you own, rent, or stay in as part of a household? Yes - Living in stable housing. Are you worried or concerned that in the next 2 months you may NOT have stable housing that you own, rent, or stay in as part of a household? No - Not worried about housing near future The reports the following: Within the past 12 months, you worried whether your food would run out before you got money to buy more. Never true Within the past 12 months, the food you bought just didn't last and you didn't have money to get more. Never true Alcohol Use Screen (AUDIT-C) - V: Alcohol Screen: SCREEN FOR ALCOHOL (AUDIT-C) An alcohol screening test (AUDIT-C) was negative (score=1). 1. How often did you have a drink containing alcohol in the past year? Consider a drink to be a 12 ounce can or bottle of regular beer, 8 ounces of malt liquor, a 5 ounce glass of table wine, or a 1.5 ounce shot of liquor (like scotch, gin, or vodka). Monthly or less 2. How many drinks containing alcohol did you have on a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
--- OUTSIDE RECORDS SUMMARY | 2025-04-28 22:50 | XMS_ITS | Encounter Summary ---
Author Name [facility] Address [address] [place] [address] Care Team Providers Care Health And Safety Tech Name Role Phone PEARL RICKETTS Primary Care Provider UnavailIGNACIO Cornelius Primary Care Provider Unavailtony ferreira Selected Encounter This section includes the information on record at [place] for the Encounter. Date/Time Encounter Type Encounter Description Reason Provider Source Oct 25, 2024 10:05 AM Outpatient Encounter GENERAL INTERNAL MEDICINE BRITNEY HURD [place] Encounter Template Text not used by [place] Plan of Treatment: Future Appointments (+ 6 months) and Future Tests (+/- 45 days) The Plan of Treatment section includes future care activities for the patient from all [place] treatmentfacilities. This section includes future appointments and future orders which are active, pending or scheduled. Future Appointments This section includes appointments that were scheduled to occur 6 months from the date of the Encounter, up to a maximum of 20 appointments. The data comes from all [place] treatment facilities. Appointment Date/Time Appointment Type Appointme nt Facility Name Jan 24, 2025 02:00 PM AMBULATORY - MEDICINE [facility] February 14, 2025 09:30 AM AMBULATORY - MEDICINE [facility] Active, Pending, and Scheduled Orders This section includes a listing of several types of active, pending, and scheduled orders, including clinic medications orders, diagnostic test orders, procedure orders and consult orders; where the start date of the order is 45 days before the date of the Encounter or 45 days after the date of theEncounter. The data comes from all [place] treatment [facility]. Test Date/Time Test Type Test Details Facility Name Sep 24, 2024 12:00 AM Laboratory - Chemi stry Order MICRAL/CREAT PROFILE (STL) URINE YELLOW SP [facility] Encounter Notes: All associated encounter notes This section contains the clinical notes associated to the Encounter. Date/Time Encounter Note(s) Provider Source Oct 19, 2024 10:05 AM NONVA NOTE: LOCAL TITLE: [facility] SELF PRESENTING CARE COORD PLAN STANDARD TITLE: NONVA NOTE DATE OF NOTE: OCT 19, 2024@10:05 ENTRY DATE: OCT 25, 2024@10:06:34 AUTHOR: BRITNEY HURD EXP COSIGNER: URGENCY: STATUS: COMPLETED Emergency Notification Intake Date Presenting to the Facility: Oct Method of Contact: Notified from Tech urSelf worklist Notification ID: [id number] [facility] Referral #: [id number] Clinical Review [facility] Name: Hospital: [facility] Address: City: [place] State: [place] Zip Code: Phone : Community Facility Point of Contact: Name: Phone: Chief complaint: POSSIBLE INSECT BITE Primary Diagnosis: Disposition Discharged Date of discharge: Oct Discharge to home Treated for thigh abscess, DC home with recommendations to f/u with PCP and surgery. Will need consult if he is to f/u with outside hospital surgery services. DC records sent securely to [facility]. Records r/t this episode of care received; sent to [facility] for scanning. Alerting PCP team to this note for continuity of care. /giselle/ BRITNEY HURD REGISTERED NURSE Signed: 10/25/2024 10:09 Receipt Acknowledged By: 10/28/2024 16:47 /giselle/ PEARL RICKETTS STAFF PHYSICIAN 10/25/2024 12:18 /giselle/ ARI MELTON, RN REGISTERED NURSE BRITNEY HURD [facility]
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
[2025-04-28 23:39] VITALS: BP 123/84; PULSE 102; RESP 18; O2SAT 95
[2025-04-28] MEDS: KETOROLAC 30 MG/ML VIAL (*BKC) 15 MG IM (23:40)
[2025-04-28] MEDS: ACETAMINOPHEN 500 MG TABLET 1000 MG PO (23:42)
[2025-04-28] MEDS: LIDOCAINE 5% PATCH 1 PATCH (23:42)
--- NOTE | 2025-04-29 00:03 | PC.NURSE ---
This RN called respiratory for education on incentive spirometer.
[2025-04-29 00:39] VITALS: BP 117/75; PULSE 99; RESP 17; O2SAT 95
== END 2025-04-29 00:33 | disposition home or self-care (01) ==
PROVIDERS: Emergency Provider Emergency Medicine
DX: S22.32XA Fracture of one rib, left side, initial encounter for closed fracture (principal); I25.10 Atherosclerotic heart disease of native coronary artery without angina pectoris; M51.379 Other intervertebral disc degeneration, lumbosacral region without mention of lumbar back pain or lower extremity pain; R93.89 Abnormal findings on diagnostic imaging of other specified body structures; R00.0 Tachycardia, unspecified; V83.5XXA Driver of special industrial vehicle injured in nontraffic accident, initial encounter
CPT/HCPCS: 70450; 72125; 72128; 72131; 93005; 96372; 99284; A9270; J1885